=== PATIENT | female | born 1935 | race Caucasian/White ===

== ENCOUNTER → 2017-07-01 | Outpatient (CLI) | payer MEDICARE, BC ==
[~2017-07-01] MED LIST: ADVAIR HFA 230M12 GM INH; AMBEREN; ASMANEX0.135 GM IH; CARDIZEM CD180 MG PO; COUMADIN 2.5MG2.5 M1; COUMADIN 3 MG TA3 M1 PO; FENTANYL 1100 MCG/HR TP; FLEXERIL PO; HYDROCODON-ACE1 EAC8 PO; HYDROCODON-ACE1 EACH PO; LEVOXYL88 MCG PO; LIDODERM 5%1 PATCH TOP; LIPITOR20 MG PO; MIACALCIN; PROAIR HFA8.5 GM IH; PROPANTHELINE B15 MG PO; ZANTAC 150MG T150 MG PO
== END ==
LOC: M.LAB 14:54
DX: E03.9 Hypothyroidism, unspecified (principal); I25.10 Atherosclerotic heart disease of native coronary artery without angina pectoris; I10 Essential (primary) hypertension; E78.5 Hyperlipidemia, unspecified; E78.00 Pure hypercholesterolemia, unspecified

== ENCOUNTER → 2017-09-22 | Outpatient (CLI) | payer MEDICARE ==
[2017-09-22 16:12] LABS: ABSOLUTE BASOPHILS 0.1 thou/uL (0.0-0.2); ABSOLUTE EOSINOPHILS 0.1 thou/uL (0.0-0.7); ABSOLUTE LYMPHOCYTES 1.5 thou/uL (0.8-5.3); ABSOLUTE NEUTROPHILS 6.2 thou/uL (1.6-8.1); BASOPHILS 1.2 %; EOSINOPHILS 1.2 %; HEMATOCRIT 42.9 % (37.0-47.0); HEMOGLOBIN 14.6 gm/dL (12.0-15.0); MCH 32.8 pg (26.0-34.0); MCHC 33.9 g/dL (28.0-37.0); MCV 96.5 fL (80.0-100.0); NUCLEATED RBCS 0 /100WBC; PLATELET COUNT* 151 thou/uL (150-400); POLYS 69.6 %; RBC 4.45 mil/uL (4.20-5.00); RDW-CV 13.1 % (10.5-14.5); WBC 8.8 thou/uL (4.0-11.0)
[2017-09-22 16:23] LABS: INR 3.5; PROTIME 33.3 Seconds (9.20-11.50)
[2017-09-22 16:28] LABS: ALBUMIN 3.9 g/dL (3.4-5.0); ALKALINE PHOSPHATASE 80 U/L (46-116); ANION GAP 8 mmol/L (7-16); BUN 11 mg/dL (7-18); CALCIUM 9.5 mg/dL (8.5-10.1); CHLORIDE 108 mmol/L (98-107); CO2 26 mmol/L (21-32); CREATININE 0.8 mg/dL (0.6-1.3); GLUCOSE 97 mg/dL (70-99); POTASSIUM 3.6 mmol/L (3.5-5.1); SGOT 26 U/L (15-37); SGPT 22 U/L (30-65); SODIUM 142 mmol/L (136-145); TOTAL BILIRUBIN 0.9 mg/dL (<0.1-1.0); TOTAL PROTEIN 9.1 g/dL (6.4-8.2)
[2017-09-22 16:51] LABS: SERUM ASSESSMENT Clear
[2017-09-22 16:52] LABS: CHOLESTEROL 115 mg/dL (<200); HDL CHOLESTEROL 45 mg/dL (>40); LDL CHOLESTEROL 50 mg/dL (<100); TC:HDL 2.6 Ratio (Not establshd); TRIGLYCERIDE 100 mg/dL (<150); VLDL 20 mg/dL (<40)
== END ==
LOC: M.LAB 15:48
PROVIDERS: Family Medicine
DX: I10 Essential (primary) hypertension (principal); E78.00 Pure hypercholesterolemia, unspecified; E03.9 Hypothyroidism, unspecified; I70.90 Unspecified atherosclerosis

== ENCOUNTER 2017-11-12 13:18 | Emergency (ER) | payer MEDICARE ==
[~2017-11-12] VITALS: Ht 154.9 cm; Wt 53.5 kg
[2017-11-12 14:20] VITALS: BP 148/78
== END 2017-11-12 14:21 | disposition home or self-care (01) ==
LOC: M.ERS 13:18
DX: S63.592A Other specified sprain of left wrist, initial encounter (principal); E03.9 Hypothyroidism, unspecified; I48.91 Unspecified atrial fibrillation; G89.29 Other chronic pain; M54.9 Dorsalgia, unspecified; Z91.041 Radiographic dye allergy status; Z88.0 Allergy status to penicillin; W18.39XA Other fall on same level, initial encounter; Y93.89 Activity, other specified; Y92.89 Other specified places as the place of occurrence of the external cause; Y99.8 Other external cause status

== ENCOUNTER 2018-07-21 20:07 | Inpatient (IN) | payer MEDICARE ==
[~2018-07-21] VITALS: Ht 162.6 cm; Wt 57.5 kg
[~2018-07-21 20:07] MED LIST changes: -AMBEREN; +MULTI VITAMIN1 EACH PO
[2018-07-21 20:10] VITALS: BP 166/65
[2018-07-21] MEDS ORDERED: NORCO 7.5-3251 EACH PO (20:13)
[2018-07-21] MEDS ORDERED: LIDODERM1 EACH TRANSDERM (20:13)
[2018-07-21] MEDS ORDERED: FENTANYL PATCH75 MCG TRANSDERM (20:13)
[2018-07-21] MEDS ORDERED: COUMADIN 3 MG TA3 M1 PO (20:13)
[2018-07-21] MEDS ORDERED: LIPITOR 20 MG T20 M1 PO (20:14)
[2018-07-21] MEDS ORDERED: PHENERGAN 25 MG25 M1 PO ×2 (20:15→23:09)
[2018-07-21] MEDS ORDERED: PROPANTHELINE B15 MG PO (20:15)
[2018-07-21] MEDS ORDERED: CARDIZEM CD 18180 M3 PO (20:15)
[2018-07-21] MEDS ORDERED: ZANTAC 150MG T150 MG PO (20:15)
[2018-07-21] MEDS ORDERED: ADVAIR 250-501 EACH INH (20:16)
[2018-07-21] MEDS ORDERED: PROAIR RESPICL90 MCG INH (20:16)
[2018-07-21] MEDS ORDERED: [UNRECOGNIZED DRUG - REMARK] (20:17)
[2018-07-21] MEDS ORDERED: CALCITONIN-SAL3.7 ML PO (20:17)
[2018-07-21] MEDS ORDERED: ARICEPT 5 MG TAB5 MG PO (20:17)
[2018-07-21] MEDS ORDERED: SYNTHROID75 MCG PO (20:17)
[2018-07-21 20:27] LABS: URINE BILIRUBIN NEGATIVE (Negative); URINE BLOOD TRACE (Negative); URINE CLARITY CLEAR; URINE COLOR YELLOW; URINE GLUCOSE-RANDOM NEGATIVE (Negative); URINE KETONES NEGATIVE (Negative); URINE LEUKOCYTES-REFLEX 2+ (Negative); URINE NITRITE-REFLEX NEGATIVE (Negative); URINE PROTEIN NEGATIVE (Negative); URINE SPECIFIC GRAVITY 1.015 (1.005-1.030); URINE UROBILINOGEN 0.2 E.U./dl (0.2-1.0)
[2018-07-21 20:35] LABS: BACTERIA-REFLEX >30 Many /HPF (None Seen); CASTS None Seen /LPF (None Seen); CRYSTALS None Seen /LPF (None Seen); SQUAMOUS 0-3 Few /LPF (0-3); URINE RBC 0-2 Rare /HPF (0-2); URINE WBC-REFLEX >25 Many /HPF (0-5)
[2018-07-21 20:52] LABS: HEMOGLOBIN 14.9 gm/dL (12.0-15.0); MCH 32.7 pg (26.0-34.0); MCHC 33.8 g/dL (28.0-37.0); MCV 96.9 fL (80.0-100.0); MPV 9.7 fl. (7.2-11.1); NUCLEATED RBCS 0 /100WBC; PLATELET COUNT* 136 thou/uL (150-400); RBC 4.54 mil/uL (4.20-5.00); RDW-CV 13.4 % (10.5-14.5); WBC 12.2 thou/uL (4.0-11.0)
[2018-07-21 20:57] LABS: APTT 29.6 Seconds (25.0-31.3); CALCIUM 9.2 mg/dL (8.5-10.1); INR 1.6; POTASSIUM 3.4 mmol/L (3.5-5.1)
[2018-07-21 21:14] LABS: ALBUMIN 3.4 g/dL (3.4-5.0); CK-MB MASS 0.6 ng/mL (<0.5-3.6); TOTAL BILIRUBIN 0.9 mg/dL (<0.1-1.0); TOTAL PROTEIN 8.8 g/dL (6.4-8.2); TROPONIN-I LEVEL 0.11 ng/mL (<0.06)
[2018-07-21 21:20] LABS: INFLUENZA A ANTIGEN None Detected (None Detect); INFLUENZA B ANTIGEN None Detected (None Detect)
[2018-07-21 22:19] LABS: ABSOLUTE BASOPHILS 0.1 thou/uL (0.0-0.2); ABSOLUTE LYMPHOCYTES 1.5 thou/uL (0.8-5.3); ABSOLUTE NEUTROPHILS 9.6 thou/uL (1.6-8.1)
[2018-07-21 22:20] LABS: PLATELET ESTIMATE DECREASED
[2018-07-21 22:22] VITALS: BP 147/56
[2018-07-21 22:42] VITALS: BP 141/62
[2018-07-21 23:00] VITALS: BP 141/53
[2018-07-22] VITALS (20 sets, daily range): BP systolic 103–136; BP diastolic 37–75
--- NOTE | 2018-07-22 01:00 | NUR ---
PT ADMITTED TO ROOM 002 FROM ED, VIA CART, TRANSPORTED FROM ED BY FAMILY CASEWORKER. AND GRANDDAUGHTER WITH PT ON ADMISSION. ADMISSION HX AND ASSESSMENT COMPLETE. ADMISSION HX OBTAINED FROM SPOUSE, WHO PT RESIDES WITH. PER SPOUSE, PT NORMALLY DOES ALL SELF CARES WITHOUT ASSIST, EXCEPT FOR PREPARIING MEDICATIONS, COOKING, OR DRIVING. PT ALERT AND ORIENTED TO SELF, STATES PLACE IS A HOSPITAL BUT UNSURE OF THE [facility]SE OF [facility], UNABLE TO PROVIDE MONTH OR YEAR. PT HAS PRESCRIBED CHRONIC OPIOID USE HX GREATER THAN 20 YEARS. PRESCRIBED HYDROCODNE 7.5MG PO Q6 HOURS SCHEDULED AND FENTANYL 75MCG DERMAL PATCH Q3DAYS SCHEDULED. PTS DENIES ANY RECENT AJUSTMENT IN PAIN MEDICATIONS OR ANY OTHER PRESCRIBED MEDICATIONS. SPOUSE FEELS PT IS BACK TO BASELINE AT THIS TIME, SPOUSE STATES CONCERNED PT DID NOT TAKE SCHEDULED 6PM OR MIDNIGHT SCHEDULED HYDROCODONE. FENTANYL PATCH ALREADY REMOVED BY EMS BEFORE ARRIVAL TO HOSPITAL. PT C/O BACK PAIN, REQUESTING PO PAIN MEDICATION. NOTIFIED DR MATOS PTS CONDITION AND SCHEDULED OPIOID HX, NEW ORDERS OBTAINED FOR HYDROCODNE 7.5/325MG PO [id number] PRN FOR PAIN, HYDROCODONE GIVEN PER ORDER, DENIES SOA, RESP EVEN AND NONLABORED. 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
[2018-07-22 04:26] LABS: ABSOLUTE LYMPHOCYTES 1.5 thou/uL (0.8-5.3); ABSOLUTE MONOCYTES 0.9 thou/uL (0.0-1.2); ABSOLUTE NEUTROPHILS 9.3 thou/uL (1.6-8.1); BASOPHILS 0.4 %; HEMATOCRIT 39.2 % (37.0-47.0); HEMOGLOBIN 13.2 gm/dL (12.0-15.0); LYMPHOCYTES 12.8 %; MCH 32.7 pg (26.0-34.0); MCHC 33.7 g/dL (28.0-37.0); MCV 97.2 fL (80.0-100.0); MONOCYTES 7.5 %; MPV 9.4 fl. (7.2-11.1); NUCLEATED RBCS 0 /100WBC; PLATELET COUNT* 110 thou/uL (150-400); POLYS 79.3 %; RBC 4.03 mil/uL (4.20-5.00); RDW-CV 13.4 % (10.5-14.5); WBC 11.7 thou/uL (4.0-11.0)
[2018-07-22 04:44] LABS: CALCIUM 8.1 mg/dL (8.5-10.1); CREATININE 0.8 mg/dL (0.6-1.3); POTASSIUM 3.5 mmol/L (3.5-5.1)
[2018-07-22 04:54] LABS: TROPONIN-I LEVEL 1.21 ng/mL (<0.06)
--- NOTE | 2018-07-22 05:50 | NUR ---
SERUM TROPONIN TRENDING UP, LAST TROP WAS ON 07/21/18 RESULT OF 0.11, THIS AM SERUM TROPONIN LEVEL IS 1.21, PT DENIES CP OR DISCOMFORT, REMAINS SB/SR WITH FIRST DEGREE AV BLOCK AND OCCASIONAL PAC'S TRACING INSIDE SALES ACCOUNT EXECUTIVE WITH HR HIGH 50'S TO 70'S. CALLED TROPONIN LEVEL TO DR MATOS, NEW ORDERS RECEIVED TO CONSULT CARDIOLOGY. CARDIOLOGY ANSWERING SERVICE NOTIFIED.
--- NOTE | 2018-07-22 07:00 | NUR ---
PROGRESSING TOWARDS GOALS, RESTING QUIELTY WITH EYES CLOSED OFF AND ON DURING NOC, EASILY AROUSABLE TO VERBAL STIMULI, HUSLIA, HYDROCODONE 7.5/325MG PO GIVEN X1 FOR BACK PAIN, HYDROCODONE EFFECTIVE FOR PAIN MANAGEMENT. ALERT TO SELF, KNOWS SHE IS IN A HOSPITAL, CAN NOT STATE FACILITY NAME OR YEAR. FOLLOWING COMMANDS, ABLE TO MAKE NEEDS KNOWN, USING CALL LIGHT [place]. NS CONTINUES 100CC/HR VIA INFUSION PUMP. SB/SR TRACING WITH FIRST DEGREE AVB TRACING FWS FACULTY ASSISTANT HR RANGING FROM HIGH 50'S TO 70'S. NO ADVERSE EFFECTS IV ANTIBIOTICS NOTED. NPO ALL SHIFT EXCEPT SIP H20 LAST NOC WITH HYDROCODONE TABLET, PT TAKES ALL PO MEDICATIONS IN EITHER LIQUID FORM OR CRUSHED WITHOUT ADDITIONAL FOOD SUCH PUDDDING OR APPLESAUSE FOR MIXTURE PER REPORTS. CISNEROS PATENT TO DD, JUDD FOWEL URINE OUTPUT WITH SEDIMENT NOTED 650CC TOTAL. BED REMAINS IN LOW AND LOCKED POSTION, CALL LIGHT IN REACH, BED ALARM ON FOR SAFETY.
--- NOTE | 2018-07-22 08:17 | NUR ---
0730 ASSUMED CARE OF PATIENT. SEE DOCUMENTED ASSESSMENT. PT IS AROUSABLE,WANTS WATER. NPO PENDING CARDIOLOGY INPUT. MONITOR SHOW SINUS TO SINUS COLLEEN WITH 1ST DEGREE BLOCK
--- NOTE | 2018-07-22 09:27 | NUR ---
DR MATOS TO SEE PATIENT AND ORDERS NOTED
--- NOTE | 2018-07-22 11:27 | NUR ---
1100 PATIENT HAD SOME BLOOD IN NOSE. OXYGEN REMOVED AT THIS TIME WWITH OXYGEN SATS FROM 92-95%/ PT C/O BACK PAIN AND PAIN IN CHEST WITH COUGHING. HAD PLACED LIDOCAINE PATCH ON BACK. MEDICATED WITH HYDROCODONE
--- NOTE | 2018-07-22 11:57 | NUR ---
EKG DONE FOR C/O CHEST PAIN. NO ACUTE CHANGES NOTED. OXYGEN REPLACED ON PATIENT AT 2LPM.
--- NOTE | 2018-07-22 12:14 | NUR ---
1200 CHEST FILM COMPLETED
--- NOTE | 2018-07-22 12:46 | EKG ---
[place] [address] ELECTROCARDIOGRAM REPORT Name: BRIDGET SORIA Room: [address] ADM IN M.R.#: [id number] Admission: 07/21/18 Attend Phys: Joelle Urena Discharge: Date of : 31 Report #: [id number] THIS REPORT FOR: //name// [facility] ED Test Date: 2018-07-21 Test Time: 20:12:11 Pat Name: BRIDGET SORIA Department: Room: [facility] Gender: F Sales Assistant: MS : 1935 Requested By: Claude Chairez Order Number: [id number] MD: Rohith Cruz Measurements Intervals [place] Rate: 83 P: 0 IL: 243 QRS: 9 QRSD: 98 T: 52 QT: 387 QTc: 455 Interpretive Statements Sinus rhythm Atrial premature complexes Prolonged [place] interval Repol abnrm suggests ischemia, diffuse leads No previous ECG available for comparison Electronically Signed On 07-22-2018 12:46:33 OUTSIDE SALES INSPECTOR by Rohith Cruz [email or web address] <ELECTRONICALLY SIGNED> By: Rohith Cruz MD, [facility] 07/22/18 1246 11 11 Rohith Cruz MD, [facility] /EPI
--- NOTE | 2018-07-22 16:54 | NUR ---
PATIENT PROGRESSING TOWARDS GOALS.SEEN BY CARDIOLOGY. DIET RESUMED. PATIENT IS ORIENTED X 3. VSS. MANY VISITORS
[2018-07-23] VITALS (16 sets, daily range): BP systolic 110–156; BP diastolic 45–93
[2018-07-23 01:49] LABS: INR 1.6; PROTIME 16.7 Seconds (9.20-11.50)
[2018-07-23 01:56] LABS: ANION GAP 9 mmol/L (7-16); BUN 12 mg/dL (7-18); CALCIUM 8.1 mg/dL (8.5-10.1); CHLORIDE 109 mmol/L (98-107); CHOLESTEROL 86 mg/dL (<200); CO2 23 mmol/L (21-32); CREATININE 0.8 mg/dL (0.6-1.3); GLUCOSE 89 mg/dL (70-99); POTASSIUM 3.4 mmol/L (3.5-5.1); SODIUM 141 mmol/L (136-145); TRIGLYCERIDE 45 mg/dL (<150); VLDL 9 mg/dL (<40)
[2018-07-23 02:04] LABS: HDL CHOLESTEROL 37 mg/dL (>40); LDL CHOLESTEROL 40 mg/dL (<100); SERUM ASSESSMENT Clear; TC:HDL 2.3 Ratio (Not establshd)
[2018-07-23 02:05] LABS: TROPONIN-I LEVEL 3.39 ng/mL (<0.06)
[2018-07-23 02:22] LABS: ABSOLUTE EOSINOPHILS 0.1 thou/uL (0.0-0.7); ABSOLUTE LYMPHOCYTES 1.6 thou/uL (0.8-5.3); ABSOLUTE MONOCYTES 0.7 thou/uL (0.0-1.2); ABSOLUTE NEUTROPHILS 8.4 thou/uL (1.6-8.1); BASOPHILS 0.4 %; EOSINOPHILS 0.5 %; HEMATOCRIT 35.5 % (37.0-47.0); LYMPHOCYTES 14.8 %; MCHC 33.8 g/dL (28.0-37.0); MCV 97.6 fL (80.0-100.0); MONOCYTES 6.9 %; MPV 9.8 fl. (7.2-11.1); NUCLEATED RBCS 0 /100WBC; PLATELET COUNT* 109 thou/uL (150-400); POLYS 77.4 %; RBC 3.63 mil/uL (4.20-5.00); RDW-CV 13.3 % (10.5-14.5); WBC 10.9 thou/uL (4.0-11.0)
--- NOTE | 2018-07-23 10:08 | NUR ---
0730 assumed care of patient.PT C/O SOB. RECEIVING AEROSOL TREATMENT. SEE DOCUMENTED ASSESSMENT.
--- NOTE | 2018-07-23 10:52 | NUR ---
SEEN BY DR PABLO AND DR MATOS WHO SPOKE WITH SPOUSE REGARDING PATIENT STATUS
--- NOTE | 2018-07-23 12:18 | EKG ---
[place] [address] ELECTROCARDIOGRAM REPORT Name: BRIDGET SORIA Room: [address] ADM IN M.R.#: [id number] Admission: 07/21/18 Attend Phys: Joelle Urena Discharge: Date of : 31 Report #: [id number] THIS REPORT FOR: //name// [facility] Test Date: 2018-07-22 Test Time: 11:36:24 Pat Name: BRIDGET SORIA Department: Room: [address] Gender: F Guest Relations Associate: GURJIT : 1935 Requested By: Rohith Cruz Order Number: [id number] Reading MD: Rohith Cruz Measurements Intervals [place] Rate: 57 P: 39 PA: 242 QRS: -3 QRSD: 97 T: 256 QT: 391 QTc: 381 Interpretive Statements Sinus arrhythmia Prolonged PA interval Low voltage, precordial leads Borderline repolarization abnormality Compared to ECG 07/21/2018 20:12:11 Low QRS voltage now present Possible ischemia no longer present Electronically Signed On 07-23-2018 12:18:34 CORPORATE TRAVEL COORDINATOR by Rohith Cruz [email or web address] <ELECTRONICALLY SIGNED> By: Rohith Cruz MD, FAC 07/23/18 1218 1136 1136 Rohith Cruz MD, [facility] /EPI
--- NOTE | 2018-07-23 18:14 | NUR ---
PATIENT PROGRESSING TOWARDS GOALS. SHORT OF AIR THIS MORNING AND APPETITE POOR. DIURESED POST LASIX AND IS CURRENTLY OFF OF OXYGEN AND ATE HER DINNER. WAS UP TO [facility] FOR BOWEL MOVEMENT. PATIENT STATES THAT SHE DOES NOT THINK HER PAIN PILLS ARE WORKING. MANY VISITORS.
--- NOTE | 2018-07-23 22:00 | NUR ---
PTS SPOUSE ASSISTS WITH ADMINISTERING HOME MEDICATIONS, STATES PT TAKES HER SCHEDULED CARDIZEM CD 180MG PO AT HS, CARDIZEM NOT GIVEN THIS AM DUE TO B/P AND HR, RESCHEDULED FOR HS SAME HOME DOSE.
--- NOTE | 2018-07-23 23:00 | NUR ---
PT C/O FEELING "LIKE I HAVE A FEVER" GENERALIZED ACHING, BACK PAIN AND CHEST PAIN POSTERIOR BILAT RIB AREAS. STATES PT PAIN WILL INCREASE AND LEG PAIN WILL BEGIN "SOON WITHOUT HER PAIN PATCH", EDUCATED DECRASED LOC ON ADMIT R/T NARCOTIC USE. PTS STATES ON DC PT WILL RESTART FENTANYL 75MCG PATCH Q3 DAYS PREVIOUSLY ORDERED. CONTACTED DR MATOS, UPDATED PT CONDITON, C/O PAIN AND REQUEST FOR FENTANYL PATCH TO RESUME HOME DOSE. NEW ORDERS RECEIVED FOR FENTANYL 12MCG TRANSDERMAL PATCH TO START TONIGHT. WILL COMMUNICATE NEW ORDERS WITH PATIENT AND SPOUSE, WILL INITIATE NEW ORDERS, AND CONTINUE TO MONITOR.
[2018-07-24] VITALS (20 sets, daily range): BP systolic 96–155; BP diastolic 59–108
[2018-07-24 02:23] LABS: PCO2 22.3 mmHg (35.0-45.0); pH 7.531 (7.340-7.450)
[2018-07-24 02:26] LABS: PO2 52.7 mmHg (75.0-100.0)
--- NOTE | 2018-07-24 02:36 | NUR ---
MAINTAINING INCREASED RESP RATE =>30'S BPM, AROUSABLE, SOMULENT, C/O INTERMITTENT CP. ABG, POTASSIUM, MAGNESIUM, GLUCOSE, TROPONIN, AND EKG ORDERED. EKG OBTAINED SR PVC'S BORDERLINE PROLONGED VA INTERVAL, WITH PROBABLE ANTEROSEPTAL INFACRCT RECENT. RECENT NONSTEMI DX THIS ADMISSION, ABG RESPIRATORY ALKALOSIS PH 7.531, PCO2 22.3, PO2 52.7, BICARB 18.3, WITH SAO2 MEAN OF 91.7, SPOKE WITH RESPIRATORY THERAPIST, WILL START HIGHFLOW NC, AWAITING STAT LAB RESULTS, WILL CONTINUE TO MONITOR. PT DENIES PAIN AT PRESENT TIME.
[2018-07-24 02:52] LABS: INR 1.7; PROTIME 17.4 Seconds (9.20-11.50)
[2018-07-24 02:59] LABS: MAGNESIUM 1.8 mg/dL (1.8-2.4); POTASSIUM 3.3 mmol/L (3.5-5.1)
[2018-07-24 03:05] LABS: TROPONIN-I LEVEL 9.36 ng/mL (<0.06)
--- NOTE | 2018-07-24 03:29 | NUR ---
CALLED AND SPOKE WITH DR PABLO, PT C/O INTERMITTENT ANTERIOR CHEST WALL PAIN, RESOLVED AT PRESENT MOMENT. UPDATED ABG, TROP, MAG, POTASSIUM, AND EKG RESULTS, UPDATED RECENT V/S, OXYGEN 4L PER NC, PORABLE CHEST XRAY PENDING AND POTASSIUM REPLACMENT GIVEN PER ELECTROLYTE PROTOCOL. NO NEW ORDERS RECEIVED AT THIS TIME.
--- NOTE | 2018-07-24 03:42 | NUR ---
C/O NAUSEA, ORDER RECEIVED FOR ZOFRAN 4MG IVP [id number] PRN, WILL INITIATE AND CONTINUE TO MONITOR.
--- NOTE | 2018-07-24 04:00 | NUR ---
SPOKE WITH DR MATOS VIA TELEPHONE, UPDATED ABG RESULTS, NAUSEA, INCREASED TROPONIN, INTERMITTENT CHEST PAIN, RESP RATE, WITH CURRENT ASSESSMENT FINDINGS, PORTABLE CXR RESULTS, AND PREVIOUS CALL TO DR PABLO R/T ABOVE STATED ISSUES. NEW ORDERS FOR NITROGLYCERIN 0.4MG SL PRN RECEIVED.
--- NOTE | 2018-07-24 06:26 | NUR ---
POTASSIUM 40MEQ PO GIVEN FOR SERUM POTASSIUM LEVEL 3.3, PER ELECTROLYTE PROTOCOL
--- NOTE | 2018-07-24 06:50 | NUR ---
MINIMAL PROGRESSION TOWARDS GOALS, DENIES PAIN OR DISCOMFORT AT PRESENT TIME, INTERMITTENT CONFUSION/FORGETFULLNESS, REMOVING CHEST CARDIAC MONITORING PATCHES, PULSE OX, AND OXYGEN, ABLE TO REAPPLY ALL THE ABOVE STATED DEVICES WITH EDUCATION, DIFFICULT TO REDIRECT AT TIMES. PT PLACED DENTURES IN CONTAINER, HEARING AID CONTAINER AND DRINKING CUP UNDER BLANKETS STATED PEOPLE WOULD STEAL THEM. REORIENTED PRN, DENIES CP AFTER NITROGLYCERIN PRN ORDERED, SPOKE WITH PTS SPOUSE THIS AM, UPDATED ON CURRENT CONDITON AND INTERVENTIONS DURING NOC. BED ALARM ON FOR SAFETY, FREQUENT EDUCATION USE OF CALL LIGHT PROVIDED, CALL LIGHT REMAINS IN REACH. BED IN LOW AND LOCKED POSITION.
--- NOTE | 2018-07-24 10:35 | NUR ---
Nutrition: Pt admitted with sepsis. H/o dementia, fibromyalgia, COPD, osteoporosis. Pt is eating 50-100% of meals. RX noted. Wt: 124#. BG 135, alb 3.4. Heart Healthy diet. Has wound on sacral area. Will have wound care at disch. RD ordered Jonh b.i.d. to aid in wound healing. Consider Mild risk at this time.
--- NOTE | 2018-07-24 11:01 | EKG ---
[place] [address] ELECTROCARDIOGRAM REPORT Name: YANGBRIDGET Room: [address] ADM IN M.R.#: [id number] Admission: 07/21/18 Attend Phys: Joelle Urena Discharge: Date of : 31 Report #: [id number] THIS REPORT FOR: //name// [facility] Test Date: 2018-07-23 Test Time: 08:05:14 Pat Name: BRIDGET SORIA Department: Room: [address] Gender: F Avian Keeper: : 1935 Requested By: Rohith Cruz Order Number: [id number] MD: Rohith Cruz Measurements Intervals [place] Rate: 58 P: 32 SD: 217 QRS: 33 QRSD: 97 T: 59 QT: 441 QTc: 434 Interpretive Statements Sinus rhythm Atrial premature complex Borderline prolonged SD interval Borderline low voltage, extremity leads septal infarct, old Borderline ST depression, anterolateral leads Electronically Signed On 07-24-2018 11:01:26 SPANISH INTERPRETER/TRANSLATOR by Rohith Cruz [email or web address] <ELECTRONICALLY SIGNED> By: Rohith Cruz MD, [facility] 07/24/18 1101 08 4 Rohith Cruz MD, [facility] /EPI
--- NOTE | 2018-07-24 11:10 | EKG ---
[place] [address] ELECTROCARDIOGRAM REPORT Name: BRIDGET SORIA Room: [address] ADM IN M.R.#: [id number] Admission: 07/21/18 Attend Phys: Joelle Urena Discharge: Date of : 31 Report #: [id number] THIS REPORT FOR: //name// [facility] Test Date: 2018-07-24 Test Time: 02:18:55 Pat Name: BRIDGET SORIA Department: Room: [address] Gender: F Director Of Restaurant Operations: NATALEE ROWELL : 1935 Requested By: Farooq Rey Order Number: [id number] Reading MD: Rohith Cruz Measurements Intervals [place] Rate: 84 P: 71 [place]: 216 QRS: 33 QRSD: 94 T: 87 QT: 410 QTc: 485 Interpretive Statements Sinus rhythm Ventricular premature complex Borderline prolonged [place] interval Probable anteroseptal infarct Baseline wander in lead(s) II Electronically Signed On 07-24-2018 11:09:58 INSURANCE CLAIMS ASSISTANT by Rohith Cruz [email or web address] <ELECTRONICALLY SIGNED> By: Rohith Cruz MD, [facility] 07/24/18 1109 0218 0218 Rohith Cruz MD, [facility] /EPI
--- NOTE | 2018-07-24 13:24 | 2DMMODE ---
[place] [address] 2 D/M-MODE ECHOCARDIOGRAM Name: HALINA SORIAIE WENDY Room: [address] ADM IN .R.#: [id number] Admission: 07/21/18 Attend Phys: Farooq Rey Discharge: Date of : 31 Date of Service: 07/24/18 1324 Report #: [id number] THIS REPORT FOR: //name// APPROVED REPORT Study performed: 07/24/2018 09:27:36 EXAM: Comprehensive 2D, Doppler, and color-flow Echocardiogram Patient Location: Bedside BSA: 1.96 HR: 90 bpm BP: 120/85 mmHg Other Information Study Quality: Good Indications Non STEMI Sepsis 2D Dimensions IVSd: 17.86 (7-11mm) LVOT Diam: 22.23 (18-24mm) LVDd: 38.01 mm PWd: 8.77 (7-11mm) Ascending Ao: 32.24 (22-36mm) LVDs: 29.56 (25-40mm) Aortic Root: 33.75 mm Volumes Left Atrial Volume (Systole) LA ESV Index: 22.20 mL/m2 Aortic Valve AoV Peak Felix.: 0.73 m/s AO Peak Gr.: 2.15 mmHg LVOT Max P.80 mmHg AO Mean Gr.: 1.21 mmHg LVOT Mean P.33 mmHg LVOT Max V: 0.45 m/s AO V2 VTI: 10.96 cm LVOT Mean V: 0.26 m/s TRACEE (VTI): 2.73 cm2 LVOT V1 VTI: 7.70 cm Mitral Valve E/A Ratio: 0.83 MV Decel. Time: 171.97 ms MV E Max Felix.: 0.41 m/s MV PHT: 49.87 ms MVA (PHT): 4.41 [place] [address] 2 D/M-MODE ECHOCARDIOGRAM Name: BRIDGET SORIA Room: [address] IN .R.#: [id number] Admission: 07/21/18 Attend Phys: Farooq Rey Discharge: Date of : 31 Date of Service: 07/24/18 1324 Report #: [id number] TDI E/Lateral E': 6.83 E/Medial E': 10.25 Medial E' Felix.: 0.04 m/s Lateral E' Felix.: 0.06 m/s Pulmonary Valve PV Peak Felix.: 0.64 m/s PV Peak Gr.: 1.62 mmHg Tricuspid Valve RAP Estimate: 5.00 mmHg TR Peak Gr.: 32.61 mmHg RVSP: 37.61 mmHg PA Pressure: 37.61 mmHg Left Ventricle The left ventricle is normal size. akinesis noted of the mid and distal anteroapical wall septal hypertrophy noted Left ventricular systolic function is severely decreased. LVEF is 20-25%. Grade I - abnormal relaxation pattern. Right Ventricle The right ventricle is normal size. The right ventricular systolic function is normal. Atria The left atrium size is normal. The right atrium size is normal. Aortic Valve The Aortic valve is sclerotic. Trace aortic regurgitation. There is no aortic valvular stenosis. Mitral Valve The mitral valve is normal in structure. Trace mitral regurgitation. No evidence of mitral valve stenosis. Tricuspid Valve The tricuspid valve is normal in structure. Mild tricuspid regurgitation. Pulmonic Valve The pulmonary valve is normal in structure. Trace pulmonic regurgitation. Great Vessels The aortic root [place] [address] 2 D/M-MODE ECHOCARDIOGRAM Name: BRIDGET SORIA WENDY Room: [address] IN [facility]#: [id number] Admission: 07/21/18 Attend Phys: Farooq Rey Discharge: Date of : 31 Date of Service: 07/24/18 1324 Report #: [id number] Pericardium There is no pericardial effusion. <Conclusion> LVEF is 20-25%. akinesis noted of the mid and distal anteroapical wall Trace aortic regurgitation. Trace mitral regurgitation. <ELECTRONICALLY SIGNED> By: Rohith Cruz MD, FAC 07/24/18 1324 1324 1324 Rohith Cruz MD, [facility] /INF
--- NOTE | 2018-07-24 15:20 | NUR ---
WOUND NURSE: PATIENT SEEN TO ADDRESS COCCYGEAL PARTIAL THICKNESS SKIN LESION ON THE COCCYX. SPOUSE REPORTING THAT THIS LESION HAS COME AND GONE FREQUENTLY OVER THE PAST 8 YEARS. MEASURES 0.5 X 0.5 X 0.1 CM, SHALLOW EROSION WITH RED, NONGRANULATING TISSUE IN THE WOUND BED, NO ACTIVE DRAINAGE PRESENT. CLEANSED WITH SAOP AND WATER, RINSED WITH WATER,THEN PATTED DRY; APPLIED MARATHON SKIN PREOTECTANT TO THE AFFECTED SITE. INSTRUCTED PATIENT AND SPOUSE ON IMPORTANCE OF FREQUENT REPOSITIONING OFF WOUND AND NUTRITIONAL NEEDS. BOTH STATED THEY UNDERSTOOD. PROVIDED A [facility] BUSINESS CARD AND EXPLAINED THEY CAN SCHEDULE APPT IF WOUND REAPPEARS ONCE HEALED.
--- NOTE | 2018-07-24 18:24 | NUR ---
PT ASSESSMENT CHARTED. VSS THROUGHOUT SHIFT. NO COMPLAINTS OF CHEST PAIN. PT EATING WITH ASSISTANCE. Q6H PAIN MEDICATION GIVEN FOR GENERALIZED PAIN. WOUND CARE NURSE VISITED WITH PATIENT, RECOMMENDATIONS IN THE CHART. NO OTHER COMPLAINTS DURING THE SHIFT. PT'S HAS BEEN EDUCATED THROUGHOUT THE DAY.
--- NOTE | 2018-07-24 22:42 | NUR ---
Report given to side splitter. Pt transferred to Tele per bed at 2230. Pt's made aware earlier this evening of possibility of pt being transferred tonight. States he did not need to be called if that happens.
[2018-07-25 04:00] VITALS: BP 115/77
[2018-07-25 05:29] LABS: ABSOLUTE EOSINOPHILS 0.2 thou/uL (0.0-0.7); ABSOLUTE LYMPHOCYTES 1.9 thou/uL (0.8-5.3); ABSOLUTE NEUTROPHILS 5.5 thou/uL (1.6-8.1); BASOPHILS 0.5 %; EOSINOPHILS 2.7 %; HEMATOCRIT 39.9 % (37.0-47.0); HEMOGLOBIN 13.4 gm/dL (12.0-15.0); LYMPHOCYTES 22.1 %; MCH 32.9 pg (26.0-34.0); MCHC 33.6 g/dL (28.0-37.0); MCV 97.9 fL (80.0-100.0); MONOCYTES 11.9 %; NUCLEATED RBCS 0 /100WBC; PLATELET COUNT* 177 thou/uL (150-400); POLYS 62.8 %; RBC 4.08 mil/uL (4.20-5.00); RDW-CV 13.2 % (10.5-14.5); WBC 8.7 thou/uL (4.0-11.0)
[2018-07-25 05:42] LABS: PROTIME 29.2 Seconds (9.20-11.50)
[2018-07-25 05:51] LABS: INR 2.9
[2018-07-25 06:10] LABS: ALBUMIN 2.2 g/dL (3.4-5.0); CALCIUM 8.5 mg/dL (8.5-10.1); POTASSIUM 3.9 mmol/L (3.5-5.1); TOTAL BILIRUBIN 0.6 mg/dL (<0.1-1.0); TOTAL PROTEIN 6.7 g/dL (6.4-8.2)
--- NOTE | 2018-07-25 07:48 | NUR ---
PT REMAINED STABLE SINCE TRANSFER FROM ICU. VSS ON 2L. PAIN RELEIVED WITH MEDICATIONS PER AUG. REPOSITIONING DONE. CALL LIGHT WITHIN REACH.
[2018-07-25 08:00] VITALS: BP 126/70
[2018-07-25 12:00] VITALS: BP 90/54
--- NOTE | 2018-07-25 14:51 | NUR ---
INITIAL ASSESSMENT: CM SPK W/PT , ANGLE, TO DISCUSS D/C PLANNING, HOME SITUATION, AND TO EDUCATE ON ROLE OF CM. PT ASLEEP @ TIME OF ASSESSEMENT & DIFFICULT TO ROUSE. PER SPOUSE PT IS A&O & INDEPENDENT W/ADLs. SPOUSE DOES THE COOKING. PT HAS GOOD FAMILY DYNAMIC, SUPPORTED BY SPOUSE, AND G/D ALSO PRESENT. PT HAS WALKER & CANE @ HOME, BUT DOESNT USED THEM PER SPOUSE. PT HAS HX OF SNF W/[facility]. CM WILL CONT TO FOLLOW TO PROVIDE SUPPORT/ASSISTANCE PRN.
[2018-07-25 15:18] VITALS: BP 81/47
[2018-07-25 16:49] VITALS: BP 108/70
--- NOTE | 2018-07-25 18:16 | NUR ---
ASSUMED PT CARE AT 0730, FULL ASSESMENT DONE CHARTED.PT A/O X3-4, FORGETFUL AT TIMES, VERY [employer] [place], ATE 75% BREAKFAST AND LUNCH, 50% DINNER. BECAME VERY DROWSY AFTER BREAKFAST, VSS , PT EASILY AROUSED, SHE STATES SHE DID NOT SLEEP WELL LAST NIGHT. PT DOES C/O PAIN IN ABDOMEN AND BACK, PAIN MEDS GIVEN PER MAR. PT C/O CHEST PAIN WITH COUGHING. CISNEROS IN PLACE DRAINING YELLOW URINE, COCCYX DRESSING C/D/I, PT TURNED Q2 HR, WORKED WITH PT, UP TO CHAIR THIS AFTERNOON. FAMILY AT BEDSIDE THIS AM, UPDATED ON PLAN OF CARE. FALL PRECAUTIONS IN PLACE, CALL LIGHT IN REACH, PT DOES USE IT. WILL CONTINUE TO MONITOR.
[2018-07-25 20:00] VITALS: BP 117/68
[2018-07-26] VITALS (7 sets, daily range): BP systolic 118–134; BP diastolic 62–69
--- NOTE | 2018-07-26 05:37 | NUR ---
ASSUMED PT CARE AT 1930. PT AWAKE, CAN ANSWER SIMPLE QUESTIONS. HARD OF HEARING. VSS ON 2L PER NC. DREDGE OPERATOR IN PLACE TRACING SR. DENIES ANY CHEST PAIN. BACK PAIN RELIEVED BY TYLENOL GIVEN PER AUG. CALL LIGHT WITHIN REACH. HOURLY ROUNDING DONE FOR PT SAFETY.
[2018-07-26 10:38] LABS: INR 3.3
--- NOTE | 2018-07-26 12:35 | CON ---
[facility] [address] [place] [address] CONSULTATION Name: BRIDGET SORIA Room: [address] IN M.R.#: [id number] Admission: 07/21/18 Attend Phys: Joelle Urena Discharge: Date of : 31 Report #: [id number] THIS REPORT FOR: //name// CC: Abner Rey DATE OF SERVICE: 07/22/2018 HISTORY OF PRESENT ILLNESS: The patient is an 82-year-old white female who I was asked to see in the hospital today after she was noted to have an elevated troponin. Unfortunately, no old records available. The patient has an extensive past medical history. She apparently had a previous myocardial infarction following rectocele surgery here at [facility] and was transferred by helicopter to [facility] with Dr. Gill, who apparently did balloon angioplasty years ago. She is not very active at this time, but has had no recent chest pain, shortness of breath, palpitations. Apparently yesterday, the states that she laid down for a nap. Later in the day, he noticed it was difficult to arouse her. The patient was brought to [facility] and admitted. I was asked to see her for further evaluation and treatment. She had had no recent fever, cough, vomiting. PAST MEDICAL HISTORY: Otherwise significant for hysterectomy, ear surgery, knee surgery. MEDICATIONS ON ADMISSION: She takes warfarin for previous history of DVT. She uses a fentanyl patch for chronic back pain, Lipitor, diltiazem, Advair, donepezil for memory loss, Synthroid. ALLERGIES: SHE IS INTOLERANT TO PENICILLIN. FAMILY HISTORY: Negative for heart disease. SOCIAL HISTORY: She is . She and her live here in [place]. No smoking or alcohol abuse. REVIEW OF SYSTEMS: She has had no history of stroke. She does have memory loss. No history of asthma, peptic ulcer disease, liver disease, kidney disease, cancer, psychiatric illness, chronic skin condition. PHYSICAL EXAMINATION: GENERAL: Elderly, frail appearing female, lying in bed. She appeared in no distress. VITAL SIGNS: She had a blood pressure of 120/60, pulse 70, her temperature on admission was 102. HEENT: She was anicteric, conjunctiva pink. Mucous membranes are dry. NECK: Veins [place] [address] CONSULTATION Name: BRIDGET SORIA WENDY Room: [address]#: [id number] Admission: 07/21/18 Attend Phys: Joelle Urena Discharge: Date of : 31 Report #: [id number] CHEST: Clear to auscultation. CARDIAC: Regular rate and rhythm. ABDOMEN: Soft. EXTREMITIES: Had no edema. SKIN: Cool and dry. NEUROLOGIC: Nonfocal. Her ECG on admission showed a sinus rhythm with nonspecific ST and T-wave change. Her x-rays yesterday in the Emergency Room, she had a CT scan of the head that showed atrophy, white matter changes. Her chest x-ray showed atelectasis. LABORATORY WORK: Sodium 139, BUN 13, creatinine 0.8. Liver function studies were normal. Troponin 1.2. White blood cell count 11.7, hemoglobin 13.2. Her urinalysis showed many wbc's and many bacteria. IMPRESSION AND RECOMMENDATIONS: 1. Urinary tract infection. 2. Drowsiness. Suspect related to narcotics. 3. Non-ST elevation myocardial infarction. No history of angina. Recommend a conservative approach. I would not recommend stress testing or cardiac catheterization. 4. Hyperlipidemia. The patient is on a statin drug. 5. Chronic back pain. 6. Previous balloon angioplasty. <ELECTRONICALLY SIGNED> By: Rohith Crzu MD, FACC 07/26/18 1235 1020 1123Dupra Cruz MD, FACC /nt
--- NOTE | 2018-07-26 13:55 | NUR ---
Anticipate that Pt will be ready to dc home tomorrow with HH.
[2018-07-27 04:00] VITALS: BP 140/85
--- NOTE | 2018-07-27 05:58 | NUR ---
ASSUMED PT CARE AT 1930. AWAKE AND ORIENTED X2-3. CAN BE FORGETFUL AT TIMES. VSS ON 2L OF O2 PER NC. COMPLAINED OF BACK PAIN AND IS PARTIALLY RELIEVED BY TYLENOL GIVEN PER AUG. WAS ABLE TO STAND UP WITH ASSIST TO THE COMMODE. CALL LIGHT WITHIN REACH. FALL PRECAUTIONS IN PLACE. HOURLY ROUNDING DONE FOR PT SAFETY.
--- NOTE | 2018-07-27 07:46 | NUR ---
PT DIFFICULT TO AROUSE THIS MORNING @ APPROX 0700. MOANS TO VIGOROUS TACTILE STIMULI. FENTANYL PATCH REMOVED. UPON REASSESSMENT PT IS AWAKE AND IS DRINKING WATER. PT STATES THAT SHE WAS NOT WAKING UP BECAUSE "SHE DID NOT GET SOME SLEEP LAST NIGHT".
[2018-07-27 08:00] VITALS: BP 132/83
--- NOTE | 2018-07-27 09:48 | NUR ---
ASSUMED CARE OF PT THIS AM AROUND 0715- PYROTECHNICIAN IN PLACE ORDERED, TRACING SR- UPON ASSESSMENT PT NOTED TO BE RESTING IN BED, EATING BREAKFAST-PT A&O X3 WITH INTERMITENT CONFUSSION NOTED- STRESS INCONTINENTS NOTED- ASISST X1 WITH TRANSFERS- LCTA, RESP EVEN AND UN-LABORED- VSS, O2 SAT 94% ON 2L VIA NC- ABD SOFT/FLAT NON-TENDER, BS X4 QUADS- LAST BM REPORTED 07/26/18- IV NOTED TO LEFT FA INTACT AND SL- FOWM DRESSING NOTED INTACT TO COCCYX, WN TO ASSESS FURTHER- COUMADIN DECREASED TO 2MG THIS SHIFT AND LASIX CHANGED TO PO- FENT D/C'D R/T DECREASED RESPONSIVENESS AFTER APPLICATION- QUESTIONING SKILLED PLACEMENT AT D/C'D- PT DENEIS ANY C/O PAIN/DISCOMFORT AT THIS TIME- CALL LIGHT AND PERSONAL BELONGINGS WITH IN REACH- BED ALARM/CHAIR IN PLACE R/T SAFETY/NEEDS- ALL NEEDS MET AT THIS TIME-WCTM
[2018-07-27 12:25] VITALS: BP 115/67
--- NOTE | 2018-07-27 16:44 | NUR ---
PT CURRENLTY RESTING IN BED- NUCLEAR OPERATIONS SPECIALIST IN PLACE ORDERED, TRACING SR- PT WORKING WITH THERAPIES ORDERED THIS SHIFT, UP WALKING HALLS WITH ASSIST X1 AND GAIT BELT THIS SHIFT, TOLERATING WELL- UP TO BED SIDE CHAIR THIS SHIFT WITH MEALS, TOLERATING WELL- PT C/O PBACK PAIN X1 THIS SHIFT, PRN HYDROCODNE GIVEN AT 1202- PT REPORTS MEDICAITON TO BE EFFECTIVE- WN CONCULTED FOR EVAL OF COCCYX WOUND THIS SHIFT- CALL LIGHT AND PERSONAL BELONGINGS WITH IN REACH- BED/CHAIR ALARM IN PLACE R/T SAFETY/NEEDS- FREQUENT CHECKS IN PLACE R/T SAFETY/NEEDS- ALL NEEDS MET AT THIS TIME-WCTM
[2018-07-27 16:49] VITALS: BP 105/65
[2018-07-27 20:20] VITALS: BP 115/84
[2018-07-28] VITALS: BP 87/43
[2018-07-28 04:00] VITALS: BP 103/57
--- NOTE | 2018-07-28 05:14 | NUR ---
PT CARE ASSUMED AT 1930. SAT MAINTAINED IN 2L NC. ALERT AND ORIENTED X4. CALL LIGHT WITHIN REACH AND BED IN LOW POSITION. C/O PAIN, MEDICTAION GIVEN PER EMAR. DENIES SOB. HOURLY ROUNDING DONE FOR PT SAFETY.
[2018-07-28] MEDS ORDERED: CARVEDILOL3.125 MG PO (08:32)
[2018-07-28] MEDS ORDERED: CEFDINIR300 MG PO (08:32)
[2018-07-28] MEDS ORDERED: LISINOPRIL5 MG PO (08:32)
[2018-07-28] MEDS ORDERED: NITROGLYCERIN0.4 MG SUBLING (08:32)
[2018-07-28] MEDS ORDERED: ASPIR 8181 MG PO (08:32)
[2018-07-28] MEDS ORDERED: LASIX 20 MG TAB20 MG PO (08:32)
[2018-07-28 09:17] LABS: INR 3.9
[2018-07-28 10:30] VITALS: BP 118/66
--- NOTE | 2018-07-28 10:31 | NUR ---
Pt discharging to home today with [facility], fax referral and dc orders. Pt may need home o2, waiting on ex ox to determine need. Following.
[2018-07-28 12:00] VITALS: BP 93/57
--- NOTE | 2018-07-28 15:47 | NUR ---
ORDER RECEIVED TO DISHCARGE PATIENT HOME TO SELF CARE WITH SPOUSE. MED REC, MEDICATIOPN EDCUCATION, STROKE EDUCATION, AND NEED FOPR FOLLOW UP APPOINTMENTS COVERED AND STATED UNDERSTOOD BY PATIENT. HEART FAILURE INTERVENTIONS, MEDICATIONS, WEIGHT MONITORING, AND FOLLOW UP APPOINTMENTS COVERD WITH PATIENT AND SPOUSE. IV AND TELEMETRY PACK REMOVED. PATIENT TAKEN VIA WHEELCHAIR TO AWAITING CAR WITH SPOUSE PRESENT. DC TIME OF 15:10. HOURLY ROUNDING COMPLETD FOR PATIENT SAFETY.
== END 2018-07-28 16:52 | disposition home health service (06) | DRG 871 ==
LOC: M.ERS 20:07 → M.TBA-ER 21:11 → M.ICU 21:11 → M.2W 07-24 22:44
PROVIDERS: Family Medicine; Internal Medicine; Internal Medicine Cardiovascular Disease; Registered Nurse; ADMIT Internal Medicine
DX: A41.9 Sepsis, unspecified organism (principal); G92 Toxic encephalopathy; I21.4 Non-ST elevation (NSTEMI) myocardial infarction; J69.0 Pneumonitis due to inhalation of food and vomit; I50.23 Acute on chronic systolic (congestive) heart failure; N30.00 Acute cystitis without hematuria; L89.159 Pressure ulcer of sacral region, unspecified stage; Z96.652 Presence of left artificial knee joint; G89.29 Other chronic pain; M54.9 Dorsalgia, unspecified; J44.9 Chronic obstructive pulmonary disease, unspecified; E03.9 Hypothyroidism, unspecified; E78.5 Hyperlipidemia, unspecified; M81.0 Age-related osteoporosis without current pathological fracture; B96.1 Klebsiella pneumoniae [K. pneumoniae] as the cause of diseases classified elsewhere; K21.9 Gastro-esophageal reflux disease without esophagitis; M19.90 Unspecified osteoarthritis, unspecified site; H91.90 Unspecified hearing loss, unspecified ear; F03.90 Unspecified dementia, unspecified severity, without behavioral disturbance, psychotic disturbance, mood disturbance, and anxiety; M79.7 Fibromyalgia; I25.10 Atherosclerotic heart disease of native coronary artery without angina pectoris; Z79.891 Long term (current) use of opiate analgesic; Z86.718 Personal history of other venous thrombosis and embolism; I25.2 Old myocardial infarction; Z95.5 Presence of coronary angioplasty implant and graft; Z88.0 Allergy status to penicillin; Z91.041 Radiographic dye allergy status; Z90.710 Acquired absence of both cervix and uterus

== ENCOUNTER → 2018-09-20 | Outpatient (CLI) | payer MEDICARE ==
[~2018-09-20] MED LIST changes: +ADVAIR 250-501 EACH INH; +ARICEPT 5 MG TAB5 MG PO; +ASPIR 8181 MG PO; +CALCITONIN-SAL3.7 ML PO; +CARDIZEM CD 18180 M3 PO; +CARVEDILOL3.125 MG PO; +CEFDINIR300 MG PO; +FENTANYL PATCH75 MCG TRANSDERM; +LASIX 20 MG TAB20 MG PO; +LIDODERM1 EACH TRANSDERM; +LIPITOR 20 MG T20 M1 PO; +LISINOPRIL5 MG PO; +NITROGLYCERIN0.4 MG SUBLING; +NORCO 7.5-3251 EACH PO; +PHENERGAN 25 MG25 M1 PO; +PROAIR RESPICL90 MCG INH; +SYNTHROID75 MCG PO; +[UNRECOGNIZED DRUG - REMARK]
[2018-09-20 09:26] LABS: ABSOLUTE BASOPHILS 0.1 thou/uL (0.0-0.2); ABSOLUTE EOSINOPHILS 0.4 thou/uL (0.0-0.7); ABSOLUTE MONOCYTES 1.4 thou/uL (0.0-1.2); ABSOLUTE NEUTROPHILS 6.6 thou/uL (1.6-8.1); BASOPHILS 1.4 %; EOSINOPHILS 4.2 %; HEMATOCRIT 43.2 % (37.0-47.0); HEMOGLOBIN 14.9 gm/dL (12.0-15.0); LYMPHOCYTES 18.6 %; MCH 32.8 pg (26.0-34.0); MCHC 34.4 g/dL (28.0-37.0); MCV 95.4 fL (80.0-100.0); MONOCYTES 13.6 %; NUCLEATED RBCS 0 /100WBC; PLATELET COUNT* 220 thou/uL (150-400); POLYS 62.2 %; RBC 4.53 mil/uL (4.20-5.00); RDW-CV 13.9 % (10.5-14.5); WBC 10.6 thou/uL (4.0-11.0)
[2018-09-20 09:35] LABS: ALBUMIN 2.8 g/dL (3.4-5.0); ALKALINE PHOSPHATASE 98 U/L (46-116); ANION GAP 9 mmol/L (7-16); BUN 13 mg/dL (7-18); CALCIUM 8.9 mg/dL (8.5-10.1); CHLORIDE 105 mmol/L (98-107); CHOLESTEROL 122 mg/dL (<200); CO2 25 mmol/L (21-32); CREATININE 0.9 mg/dL (0.6-1.3); GLUCOSE 96 mg/dL (70-99); HDL CHOLESTEROL 36 mg/dL (>40); LDL CHOLESTEROL 61 mg/dL (<100); POTASSIUM 3.8 mmol/L (3.5-5.1); SGOT 29 U/L (15-37); SGPT 30 U/L (30-65); SODIUM 139 mmol/L (136-145); TC:HDL 3.4 Ratio (Not establshd); TOTAL BILIRUBIN 0.5 mg/dL (<0.1-1.0); TOTAL PROTEIN 8.3 g/dL (6.4-8.2); TRIGLYCERIDE 125 mg/dL (<150); VLDL 25 mg/dL (<40)
[2018-09-20 09:38] LABS: SERUM ASSESSMENT Clear
== END ==
LOC: M.LAB 08:43
PROVIDERS: Family Medicine
DX: I10 Essential (primary) hypertension (principal); E78.00 Pure hypercholesterolemia, unspecified; E03.9 Hypothyroidism, unspecified

== ENCOUNTER → 2018-10-23 | Outpatient (CLI) | payer MEDICARE ==
--- NOTE | 2018-10-23 14:50 | 2DMMODE ---
[place] [address] 2 D/M-MODE ECHOCARDIOGRAM Name: YANGBRIDGET GEORGE WENDY Room: [facility].#: [id number] Admission: 10/23/18 Attend Phys: Rohith Cruz MD Discharge: Date of : 31 Date of Service: 10/23/18 1450 Report #: [id number] THIS REPORT FOR: //name// APPROVED REPORT Study performed: 10/23/2018 13:16:17 EXAM: Comprehensive 2D, Doppler, and color-flow Echocardiogram Patient Location: Out-Patient BSA: 1.57 HR: 50 bpm BP: 120/85 mmHg Other Information Study Quality: Good Indications Cardiomyopathy 2D Dimensions IVSd: 12.83 (7-11mm) LVOT Diam: 20.72 (18-24mm) LVDd: 29.50 mm PWd: 12.45 (7-11mm) Ascending Ao: 31.49 (22-36mm) LVDs: 26.91 (25-40mm) Aortic Root: 32.14 mm Volumes Left Atrial Volume (Systole) LA ESV Index: 19.10 mL/m2 Aortic Valve AoV Peak Felix.: 0.76 m/s AO Peak Gr.: 2.33 mmHg LVOT Max P.36 mmHg AO Mean Gr.: 1.21 mmHg LVOT Mean P.68 mmHg LVOT Max V: 0.58 m/s AO V2 VTI: 17.11 cm LVOT Mean V: 0.38 m/s TRACEE (VTI): 3.09 cm2 LVOT V1 VTI: 15.69 cm Mitral Valve E/A Ratio: 0.67 MV Decel. Time: 393.67 ms MV E Max Felix.: 0.35 m/s MV PHT: 114.16 ms MVA (PHT): 1.93 [place]2 [place] [address] 2 D/M-MODE ECHOCARDIOGRAM Name: YANG,BRIDGET WENDY Room: [facility]#: [id number] Admission: 10/23/18 Attend Phys: Rohith Curz MD Discharge: Date of : 31 Date of Service: 10/23/18 1450 Report #: [id number] TDI E/Lateral E': 4.38 E/Medial E': 8.75 Medial E' Felix.: 0.04 m/s Lateral E' Felix.: 0.08 m/s Pulmonary Valve PV Peak Felix.: 0.79 m/s PV Peak Gr.: 2.52 mmHg Tricuspid Valve RAP Estimate: 5.00 mmHg TR Peak Gr.: 20.52 mmHg RVSP: 25.52 mmHg PA Pressure: 25.52 mmHg Left Ventricle The left ventricle is normal size. mild hypokinesis noted of the distal septum and apex Mild concentric left ventricular hypertrophy. Left ventricular systolic function is mild decreased. LVEF is 45-50%.. Grade I - abnormal relaxation pattern. Right Ventricle The right ventricle is normal size. The right ventricular systolic function is normal. Atria The left atrium size is normal. The right atrium size is normal. Aortic Valve Mild aortic valve sclerosis. Mild aortic regurgitation. There is no aortic valvular stenosis. Mitral Valve The mitral valve is normal in structure. Mild mitral regurgitation. No evidence of mitral valve stenosis. Tricuspid Valve The tricuspid valve is normal in structure. Mild tricuspid regurgitation. Pulmonic Valve The pulmonary valve is normal in structure. Mild pulmonic regurgitation. Great Vessels The aortic root is normal in size. The inferior vena [place] [address] 2 D/M-MODE ECHOCARDIOGRAM Name: BRIDGET SORIA WENDY Room: [facility]#: [id number] Admission: 10/23/18 Attend Phys: Rohith Cruz MD Discharge: Date of : 31 Date of Service: 10/23/18 1450 Report #: [id number] visualized. Pericardium There is no pericardial effusion. <Conclusion> LVEF is 45-50%.. mild hypokinesis noted of the distal septum and apex Mild aortic valve sclerosis. Mild concentric left ventricular hypertrophy. <ELECTRONICALLY SIGNED> By: Rohith Cruz MD, [facility] 10/23/18 1450 [id number] Rohith Cruz MD, [facility] /INF
== END ==
LOC: M.CRD 12:54
DX: I08.8 Other rheumatic multiple valve diseases (principal); I11.0 Hypertensive heart disease with heart failure; I50.22 Chronic systolic (congestive) heart failure; Z88.0 Allergy status to penicillin; Z91.041 Radiographic dye allergy status

== ENCOUNTER → 2018-10-31 | Outpatient (CLI) | payer MEDICARE | LOC: M.ULTRA 12:53 | DX: N64.4 Mastodynia (principal) ==

== ENCOUNTER → 2019-03-23 | Outpatient (CLI) | payer MEDICARE ==
[2019-03-23 13:49] LABS: ABSOLUTE BASOPHILS 0.1 thou/uL (0.0-0.2); ABSOLUTE EOSINOPHILS 0.7 thou/uL (0.0-0.7); ABSOLUTE LYMPHOCYTES 2.1 thou/uL (0.8-5.3); ABSOLUTE NEUTROPHILS 4.1 thou/uL (1.6-8.1); BASOPHILS 1.1 %; EOSINOPHILS 8.3 %; HEMATOCRIT 42.9 % (37.0-47.0); HEMOGLOBIN 14.9 gm/dL (12.0-15.0); LYMPHOCYTES 26.2 %; MCH 33.9 pg (26.0-34.0); MCHC 34.7 g/dL (28.0-37.0); MCV 97.7 fL (80.0-100.0); MONOCYTES 12.9 %; MPV 9.5 fl. (7.2-11.1); NUCLEATED RBCS 0 /100WBC; PLATELET COUNT* 181 thou/uL (150-400); POLYS 51.5 %; RBC 4.39 mil/uL (4.20-5.00)
[2019-03-23 14:03] LABS: ALBUMIN 3.5 g/dL (3.4-5.0); ALKALINE PHOSPHATASE 88 U/L (46-116); ANION GAP 9 mmol/L (7-16); BUN 13 mg/dL (7-18); CALCIUM 9.7 mg/dL (8.5-10.1); CHLORIDE 104 mmol/L (98-107); CHOLESTEROL 149 mg/dL (<200); CO2 26 mmol/L (21-32); CREATININE 0.9 mg/dL (0.6-1.3); GLUCOSE 104 mg/dL (70-99); HDL CHOLESTEROL 47 mg/dL (>40); LDL CHOLESTEROL 84 mg/dL (<100); POTASSIUM 4.3 mmol/L (3.5-5.1); SGOT 28 U/L (15-37); SGPT 26 U/L (30-65); SODIUM 139 mmol/L (136-145); TC:HDL 3.2 Ratio (Not establshd); TOTAL BILIRUBIN 0.8 mg/dL (<0.1-1.0); TOTAL PROTEIN 8.7 g/dL (6.4-8.2); TRIGLYCERIDE 92 mg/dL (<150); VLDL 18 mg/dL (<40)
[2019-03-23 14:27] LABS: SERUM ASSESSMENT Clear
== END ==
LOC: M.LAB 13:08
PROVIDERS: Family Medicine
DX: I10 Essential (primary) hypertension (principal); I25.10 Atherosclerotic heart disease of native coronary artery without angina pectoris; E78.5 Hyperlipidemia, unspecified; E03.9 Hypothyroidism, unspecified

== ENCOUNTER 2019-10-12 14:36 | Inpatient (IN) | payer MEDICARE ==
[~2019-10-12] VITALS: Ht 165.1 cm; Wt 54.7 kg
[2019-10-12 14:37] VITALS: BP 153/87
[2019-10-12 15:01] LABS: URINE BILIRUBIN NEGATIVE (Negative); URINE BLOOD NEGATIVE (Negative); URINE CLARITY SL CLOUDY; URINE COLOR YELLOW; URINE GLUCOSE-RANDOM NEGATIVE (Negative); URINE KETONES NEGATIVE (Negative); URINE LEUKOCYTES-REFLEX 1+ (Negative); URINE NITRITE-REFLEX NEGATIVE (Negative); URINE PROTEIN NEGATIVE (Negative)
[2019-10-12 15:13] LABS: HEMATOCRIT 43.9 % (37.0-47.0); HEMOGLOBIN 15.4 gm/dL (12.0-15.0); MCV 94.3 fL (80.0-100.0); MPV 9.9 fl. (7.2-11.1); NUCLEATED RBCS 0 /100WBC; PLATELET COUNT* 154 thou/uL (150-400); RBC 4.65 mil/uL (4.20-5.00); RDW-CV 13.2 % (10.5-14.5); WBC 18.9 thou/uL (4.0-11.0)
[2019-10-12 15:15] LABS: BACTERIA-REFLEX >30 Many /HPF (None Seen); CASTS None Seen /LPF (None Seen); CRYSTALS None Seen /LPF (None Seen); SQUAMOUS NONE SEEN /LPF (0-3); URINE RBC 0-2 Rare /HPF (0-2); URINE WBC-REFLEX 6-15 Few /HPF (0-5)
[2019-10-12 15:16] LABS: WBC CLUMPS Few (None Seen)
[2019-10-12 15:25] LABS: ANION GAP 11 mmol/L (7-16); APTT 26.4 Seconds (25.0-31.3); BUN 14 mg/dL (7-18); CALCIUM 8.4 mg/dL (8.5-10.1); CHLORIDE 105 mmol/L (98-107); CO2 22 mmol/L (21-32); CREATININE 0.9 mg/dL (0.6-1.3); GLUCOSE 124 mg/dL (70-99); INR 1.2; PROTIME 12.1 Seconds (9.20-11.50); SODIUM 138 mmol/L (136-145)
[2019-10-12 15:31] LABS: POTASSIUM 2.8 mmol/L (3.5-5.1)
[2019-10-12 15:40] LABS: SGOT 183 U/L (15-37)
[2019-10-12 15:41] LABS: ALBUMIN 2.8 g/dL (3.4-5.0); ALKALINE PHOSPHATASE 87 U/L (46-116); CK-MB MASS < 0.5 ng/mL (<0.5-3.6); NT-PRO BRAIN NAT PEPTIDE 1017 pg/mL (<300); SGPT 87 U/L (30-65); TOTAL PROTEIN 8.1 g/dL (6.4-8.2)
[2019-10-12 15:47] LABS: ABSOLUTE LYMPHOCYTES 1.3 thou/uL (0.8-5.3); ABSOLUTE MONOCYTES 1.1 thou/uL (0.0-1.2); ABSOLUTE NEUTROPHILS 16.4 thou/uL (1.6-8.1); PLATELET ESTIMATE ADEQUATE
--- NOTE | 2019-10-12 15:51 | NUR ---
IN WAITING ROOM AND UPDATED ON PLAN OF CARE. STATES THEY HAVE NOT LEFT THE HOUSE IN APPROX 1 MONTH. PT STARTED C/O LOW ABD PAIN LAST NIGHT AND AMS THIS AM. UNSURE OF MEDS. [facility] AND MED LIST REQUESTED
[2019-10-12] MEDS ORDERED: NORCO 10-325 T1 EACH PO (16:02)
[2019-10-12] MEDS ORDERED: POTASSIUM20 MEQ/15 PO (16:08)
[2019-10-12 17:00] VITALS: BP 134/50
--- NOTE | 2019-10-12 17:00 | NUR ---
INFORMED OF ROOM ASSIGNMENT AND GIVEN PHONE NUMBER TO UNIT
[2019-10-12 18:14] VITALS: BP 134/50
--- NOTE | 2019-10-12 19:05 | NUR ---
PT. ARRIVED TO ROOM 233. PT. UNRESPONSIVE EXCEPT TO PAINFUL STIMULI. CISNEROS PLACED PER ORDERS. FULL ASSESSMENT COMPLETED, ADMISSION PROCESS LIMITED DUE TO PT. STATUS. FALL PRECAUTIONS IN PLACE, CALL LIGHT IN REACH.
[2019-10-12 20:00] VITALS: BP 109/96
[2019-10-13] VITALS: BP 110/47
[2019-10-13 04:00] VITALS: BP 113/43
[2019-10-13 05:55] LABS: CALCIUM 8.2 mg/dL (8.5-10.1); CREATININE 0.8 mg/dL (0.6-1.3); POTASSIUM 3.5 mmol/L (3.5-5.1)
--- NOTE | 2019-10-13 06:52 | NUR ---
PT NOT RESPONDING TO QUESTIONS, NOT OPENING EYES, WILL MAKE VOLENTARY MOVEMENTS. SPOKE WITH WHO STATED SHE IS VERY BIG [place] AND THAT HE HAS TO USE A MAKER BOARD AT HOME SOMETIMES FOR COMMUNICATION. I ATTEMPTED THIS BUT PT WOULD NOT OPEN EYES OR RESPOND. ALSO STATED THAT ALL HER MEDS MUST BE CRUSHED. PT ON ENHANSED PERCAUTIONS, COVID TEST DID COME BACK NOT DETECTED.
[2019-10-13 08:12] LABS: HEMATOCRIT 39.9 % (37.0-47.0); MCH 32.7 pg (26.0-34.0); MCHC 33.7 g/dL (28.0-37.0); MCV 96.9 fL (80.0-100.0); MPV 10.3 fl. (7.2-11.1); RBC 4.11 mil/uL (4.20-5.00); RDW-CV 13.4 % (10.5-14.5); WBC 19.2 thou/uL (4.0-11.0)
[2019-10-13 08:15] LABS: HEMOGLOBIN 13.4 gm/dL (12.0-15.0)
[2019-10-13 08:17] LABS: ALBUMIN 2.3 g/dL (3.4-5.0); TOTAL BILIRUBIN 2.6 mg/dL (<0.1-1.0)
[2019-10-13 08:30] VITALS: BP 137/47
--- NOTE | 2019-10-13 19:14 | NUR ---
ASSUMED PT CARE AT 0730, FULL ASSESMENT DONE CHARTED. PT A/O X3 SOMETIMES X4. SHE IS VERY [place], WEARS A HEARING AID ON THE LEFT SIDE. SHE IS ABLE TO COMMUNICATE IF STAFF TALK LOUD AND SLOW OR USE PAPER AND PEN. SHE C/O CONSTIPATION THIS AM, ENEMA GIVEN, HAD LARGE SOLID BM. PIPIDA SCAN DONE, HAD TO USE MORPHINE FOR IT. SHE TOLERATED REGULAR DINNER. HEPARIN GTT STARTED PER CARDIOLOGY. GI CONSULT PLACED. PT UP WITH 1 ASSIST, USING COMMODE. CISNEROS IN PLACE DD. DARK YELLOW URINE. MEDS TAKEN CRUSED IN APPLESAUCE. PT DENIES PAIN. TAKES HYDROCODONE ROUTINE FOR PAIN, HELD TODAY DUE TO GETTING MORPHINE. CALLED MUTIPLE TIMES, UPDATED, BROUGHT DENTURES. REPORT GIVEN TO IGNACIA ROWELL.
[2019-10-13 20:00] VITALS: BP 139/61
[2019-10-14 00:25] VITALS: BP 121/58
[2019-10-14 04:00] VITALS: BP 157/72
[2019-10-14 04:29] LABS: ABSOLUTE BASOPHILS 0.1 thou/uL (0.0-0.2); ABSOLUTE EOSINOPHILS 0.2 thou/uL (0.0-0.7); ABSOLUTE LYMPHOCYTES 2.1 thou/uL (0.8-5.3); ABSOLUTE MONOCYTES 0.9 thou/uL (0.0-1.2); ABSOLUTE NEUTROPHILS 8.8 thou/uL (1.6-8.1); BASOPHILS 0.4 %; EOSINOPHILS 1.9 %; HEMATOCRIT 37.2 % (37.0-47.0); HEMOGLOBIN 12.7 gm/dL (12.0-15.0); LYMPHOCYTES 17.2 %; MCH 32.8 pg (26.0-34.0); MCHC 34.2 g/dL (28.0-37.0); MONOCYTES 7.2 %; MPV 9.5 fl. (7.2-11.1); NUCLEATED RBCS 0 /100WBC; PLATELET COUNT* 140 thou/uL (150-400); POLYS 73.3 %; RBC 3.87 mil/uL (4.20-5.00); RDW-CV 13.7 % (10.5-14.5)
[2019-10-14 04:38] LABS: POTASSIUM 3.5 mmol/L (3.5-5.1)
[2019-10-14 05:16] LABS: ALBUMIN 2.3 g/dL (3.4-5.0); CALCIUM 7.5 mg/dL (8.5-10.1); CREATININE 0.8 mg/dL (0.6-1.3); PHOSPHORUS* 2.3 mg/dL (2.5-4.9); TOTAL BILIRUBIN 1.2 mg/dL (<0.1-1.0); TOTAL PROTEIN 6.5 g/dL (6.4-8.2)
--- NOTE | 2019-10-14 05:27 | NUR ---
ASSESSMENTS COMPLETED AT BEDSIDE, PLEASE SEE CHARTING FOR DETAILS. MEDICATIONS ADMINISTERED PER MAR. PT REPORTS NO C/O PAIN OR DISCOMFORT. HOURLY ROUNDING COMPLETED FOR SAFETY, CALL LIGHT WITHIN REACH.
[2019-10-14 08:00] VITALS: BP 165/91
[2019-10-14 13:19] VITALS: BP 127/40
--- NOTE | 2019-10-14 16:08 | EKG ---
[place] [address] ELECTROCARDIOGRAM REPORT Name: BRIDGET SORIA Room: [place] [address] ADM IN .R.#: [id number] Admission: 10/12/19 Attend Phys: Farooq Rey Discharge: Date of : 31 Date of Service: 10/12/19 1443 Report #: [id number] THIS REPORT FOR: //name// [facility] ED Test Date: 2019-10-12 Test Time: 14:43:07 Pat Name: BRIDGET SORIA Department: Room: [facility] Gender: F Personnel Consultant: NORIS : 1935 Requested By: Claude Chairez Order Number: [id number] MD: Carlos Mcintyre Measurements Intervals Sutton Rate: 86 P: 258 IL: 184 QRS: -10 QRSD: 85 T: 146 QT: 378 QTc: 452 Interpretive Statements Sinus rhythm with first-degree AV block Nonspecific repol abnormality, diffuse leads Compared to ECG 07/24/2018 02:18:55 Ectopic atrial rhythm now present Early repolarization now present Ventricular premature complex(es) no longer present Electronically Signed On 10-14-2019 16:07:09 CDT by Carlos Mcintyre [email or web address] <ELECTRONICALLY SIGNED> By: Carlos Mcintyre MD, FACC 10/14/19 1607 1443 1443 Carlos Mcintyre MD, [facility] /EPI
[2019-10-14 20:00] VITALS: BP 127/56
[2019-10-15] VITALS: BP 131/53
[2019-10-15 04:00] VITALS: BP 131/53
[2019-10-15 04:51] LABS: CREATININE 0.7 mg/dL (0.6-1.3); POTASSIUM 3.1 mmol/L (3.5-5.1)
--- NOTE | 2019-10-15 07:25 | NUR ---
CHANGE OF SHIFT BEDSIDE REPORT REPORT GIVEN PATIENT SEEN AT BEDSIDE, IN BED ASLEEP ASSUMED PATIENT CARE
--- NOTE | 2019-10-15 07:59 | NUR ---
PT A+O X4. PT HARD OF HEARING. ABLE TO COMMUNICATE BY WRITING ON HER CLIPBOARD. PT WAS (ASYMPTOMATIC) BRADYCARDIC THROUGH THE NIGHT. HELD PAIN MEDICATION AND PT DIDNT REPORT ANY PAIN OR DISCOMFORT THROUGHOUT SHIFT. REPORTED TO ABOVE FINDINGS DAY RN. CALL LIGHT IN REACH. HOURLY ROUNDING FOR SAFETY.
[2019-10-15 12:00] VITALS: BP 150/56
--- NOTE | 2019-10-15 14:26 | 2DMMODE ---
[place] [address] 2 D/M-MODE ECHOCARDIOGRAM Name: BRIDGET SORIA WENDY Room: [place] [address] ADM IN M.R.#: [id number] Admission: 10/12/19 Attend Phys: Farooq Rey Discharge: Date of : 31 Date of Service: 10/15/19 1424 Report #: [id number] THIS REPORT FOR: cc: Anber Chandler,Abner Hirsch,Flash Tang MD [facility] ~ APPROVED REPORT Study performed: 10/15/2019 11:12:55 EXAM: Comprehensive 2D, Doppler, and color-flow Echocardiogram Patient Location: In-Patient Room #: [facility] Status: routine BSA: 1.66 HR: 50 bpm BP: 131/53 mmHg Rhythm: NSR Other Information Study Quality: Good Indications Acute OK 2D Dimensions IVSd: 9.60 (7-11mm) LVOT Diam: 20.31 (18-24mm) LVDd: 42.05 mm PWd: 9.10 (7-11mm) Ascending Ao: 33.24 (22-36mm) LVDs: 27.05 (25-40mm) Aortic Root: 31.97 mm Volumes Left Atrial Volume (Systole) LA ESV Index: 29.70 mL/m2 Aortic Valve AoV Peak Felix.: 1.09 m/s AO Peak Gr.: 4.74 mmHg LVOT Max P.01 mmHg AO Mean Gr.: 2.78 mmHg LVOT Mean P.14 mmHg LVOT Max V: 0.71 m/s AO V2 VTI: 27.10 cm LVOT Mean V: 0.50 m/s TRACEE (VTI): 2.25 cm2 LVOT V1 VTI: 18.86 [place] [address] 2 D/M-MODE ECHOCARDIOGRAM Name: BRIDGET SORIA Room: [address] IN ..#: [id number] Admission: 10/12/19 Attend Phys: Farooq Rey Discharge: Date of : 31 Date of Service: 10/15/19 1424 Report #: [id number] Mitral Valve E/A Ratio: 1.40 MV Decel. Time: 229.99 ms MV E Max Felix.: 0.60 m/s MV PHT: 66.70 ms MVA (PHT): 3.30 cm2 TDI E/Lateral E': 6.00 E/Medial E': 10.00 Medial E' Felix.: 0.06 m/s Lateral E' Felix.: 0.10 m/s Pulmonary Valve PV Peak Felix.: 0.89 m/s PV Peak Gr.: 3.18 mmHg Tricuspid Valve RAP Estimate: 5.00 mmHg TR Peak Gr.: 18.51 mmHg RVSP: 23.00 mmHg PA Pressure: 23.00 mmHg Left Ventricle The left ventricle is normal size. There is normal LV segmental wall motion. There is normal left ventricular wall thickness. Left ventricular systolic function is normal. The left ventricular ejection fraction is within the normal range. LVEF is 50-55%. Right Ventricle The right ventricle is normal size. The right ventricular systolic function is normal. Atria The left atrium size is normal. The right atrium size is normal. Aortic Valve Mild aortic valve sclerosis. Trace aortic regurgitation. There is no aortic valvular stenosis. Mitral Valve The mitral valve is normal in structure. Trace mitral regurgitation. No evidence of mitral valve stenosis. Tricuspid Valve The tricuspid valve is normal in structure. Trace tricuspid regurgitation[place] [address] 2 D/M-MODE ECHOCARDIOGRAM Name: BRIDGET SORIA WENDY Room: [address] IN [facility]#: [id number] Admission: 10/12/19 Attend Phys: Farooq Rey Discharge: Date of : 31 Date of Service: 10/15/19 1424 Report #: [id number] Pulmonic Valve The pulmonary valve is normal in structure. Trace pulmonic regurgitation. Great Vessels The aortic root is normal in size. IVC is not visualized. Pericardium There is no pericardial effusion. <Conclusion> The left ventricle is normal size. There is normal left ventricular wall thickness. Left ventricular systolic function is normal. The left ventricular ejection fraction is within the normal range. LVEF is 50-55%. The right ventricle is normal size. The left atrium size is normal. Mild aortic valve sclerosis. Trace aortic regurgitation. There is no aortic valvular stenosis. The mitral valve is normal in structure. Trace mitral regurgitation. No evidence of mitral valve stenosis. The tricuspid valve is normal in structure. There is no pericardial effusion. There is normal LV segmental wall motion. <ELECTRONICALLY SIGNED> By: Flash Earl MD, FACC 10/15/19 1424 1424 1424 Flash Earl MD, FACC /INF
--- NOTE | 2019-10-15 15:11 | NUR ---
CM attempted to contact Pt's , phone was busy. Cm contacted Pt's dtr, she requested that I speak with , CM provided dtr with CM contact info and requested that give CM a call to discuss living situation.
[2019-10-15 16:00] VITALS: BP 162/60
--- NOTE | 2019-10-15 16:09 | NUR ---
CM spoke with Pt's via phone. Pt is independent with ADLs, completes IADLs. Pt has a walker and cane that she can use for mobility. Hx of [facility]. No hx of SNF. Goal is home at [place], no needs anticipated. Following.
[2019-10-15 20:20] VITALS: BP 152/64
[2019-10-16 00:30] VITALS: BP 131/55
[2019-10-16 04:30] VITALS: BP 150/67
--- NOTE | 2019-10-16 05:04 | NUR ---
ASSUMED CARE AT 1920H, ON RA AND TOLERATED. NO DISTRESS NOTED. UPDATE GIVEN TO AND WANTED TO TALK TO THE DOCTOR TOMORROW MORNING VIA PHONE REGADING THE TREATMENT FOR HER . NO CHEST PAIN NOTED, PT WAS BRADYCARDIC THE WHOLE NIGHT, COREG NOT GIVEN.C CONTINUE MONITORING AND TOWARD GOALS.
[2019-10-16 06:22] LABS: HEMATOCRIT 39.4 % (37.0-47.0); HEMOGLOBIN 13.6 gm/dL (12.0-15.0); MCH 32.9 pg (26.0-34.0); MCHC 34.5 g/dL (28.0-37.0); MCV 95.3 fL (80.0-100.0); MPV 9.5 fl. (7.2-11.1); RBC 4.13 mil/uL (4.20-5.00); RDW-CV 13.3 % (10.5-14.5)
[2019-10-16 06:31] LABS: ALBUMIN 2.3 g/dL (3.4-5.0); CALCIUM 8.2 mg/dL (8.5-10.1); CREATININE 0.7 mg/dL (0.6-1.3); POTASSIUM 3.9 mmol/L (3.5-5.1)
[2019-10-16 08:00] VITALS: BP 176/79
--- NOTE | 2019-10-16 08:28 | CON ---
[address] [address] CONSULTATION Name: BRIDGET SORIA WENDY Room: [place] [address] ADM IN M.R.#: [id number] Admission: 10/12/19 Attend Phys: Joelle Urena Discharge: Date of : 31 Report #: [id number] THIS REPORT FOR: //name// cc: Abner Chandler Bruce R. DO ~ THIS REPORT FOR: //name// CC: Abner Cruz MD [facility] Farooq Rey CARDIOLOGY CONSULT INDICATION: Chest pain, elevated troponin consistent with non-STEMI, and acute cholecystitis. HISTORY OF PRESENT ILLNESS: The patient is an elderly 84-year-old white female with multiple comorbidities. She was admitted to the hospital yesterday with ongoing nausea, vomiting, and chest pain. In this setting, she was found to have elevated bilirubin. Abdominal ultrasound showed evidence of cholelithiasis. She also had an elevation in her troponin consistent with non-ST elevation myocardial infarction. The patient has documented underlying coronary artery disease and an ischemic cardiomyopathy. Her EF on most recent echocardiogram was felt to be in the neighborhood of 40-45%. She has been medically managed for many years. Her last intervention was in the late . At present, she is no longer having chest pain. History is not entirely reliable, although she reports yesterday having chest pain radiating across her chest lasting only a few seconds. She does not recall having abdominal discomfort, nausea, and vomiting. As stated, she appears presently stable. She is not having any further nausea, vomiting or chest pain. PAST MEDICAL HISTORY: 1. Coronary artery disease. 2. Ischemic cardiomyopathy. 3. Hyperlipidemia. 4. Hypertension. 5. Atrial fibrillation. 6. Congestive heart failure. 7. Dementia. 8. Fibromyalgia. 9. [place] [address] CONSULTATION Name: BRIDGET SORIA Room: [address] IN [facility].#: [id number] Admission: 10/12/19 Attend Phys: Joelle Urena Discharge: Date of : 31 Report #: [id number] 10. Loss of hearing. 11. History of deep venous thrombosis with completed course of anticoagulation. 12. Hypothyroidism. PAST SURGICAL HISTORY: 1. Bladder suspension. 2. Hiatal hernia repair. 3. Knee arthroscopy. 4. Ear surgery. 5. Thyroidectomy. 6. Rectocele repair. FAMILY HISTORY: Noncontributory. SOCIAL HISTORY: No alcohol or tobacco use. ALLERGIES: None documented. HOME MEDICATIONS: Albuterol 2 puffs every 4 hours p.r.n., aspirin 81 mg daily, atorvastatin 20 mg daily, Miacalcin 200 units nasally daily, Coreg 3.125 mg b.i.d., Aricept 10 mg daily, Advair 250/50 one puff b.i.d., furosemide 20 mg daily, Bells 10/325 every 6 hours p.r.n., Synthroid 75 mcg daily, Lidoderm patch daily, lisinopril 5 mg one half tablet daily, Nitrostat p.r.n., potassium 20 mEq daily, Phenergan 25 mg every 6 hours p.r.n., Probuphine 15 mg p.r.n., Thera-M, multivitamin 1 tablet daily. REVIEW OF SYSTEMS: A 14-point review of systems according to the patient positive for pneumonia in 2019, COPD, hypothyroidism, DVT remotely, IODINE ALLERGY, PENICILLIN ALLERGY, osteoporosis, hard of hearing. PHYSICAL EXAMINATION: VITAL SIGNS: Blood pressure 137/47, pulse is in the 60s and regular. GENERAL: This is a pleasant elderly female with mild dementia. She is without significant complaint at this time. She is not having chest pain presently. HEENT: Head is normocephalic, atraumatic. Extraocular muscles intact. NECK: Shows no jugular venous distention. There are no carotid bruits. CHEST: Reveals clear lung sounds. CARDIOVASCULAR: Reveals a regular rhythm. I do not appreciate gallop or murmur. ABDOMEN: Reveals normal bowel sounds. The abdomen is soft, nontender. EXTREMITIES: Shows no edema. SKIN: Dry. DIAGNOSTIC DATA: Shows sinus rhythm with first degree AV block and diffuse ST [place] [address] CONSULTATION Name: BRIDGET SORIA Room: [place] [address] ADM IN .R.#: [id number] Admission: 10/12/19 Attend Phys: Joelle Urena Discharge: Date of : 31 Report #: [id number] IMPRESSION AND RECOMMENDATIONS: 1. Non-ST elevation myocardial infarction. The patient presently hemodynamically stable. Continue conservative management. Would consider heparin drip for 24 hours. We will obtain echocardiogram to further assess LV systolic function. Otherwise, continue conservative management and risk factor modification. 2. Possible acute cholecystitis. The patient appears clinically improved. She would be at high risk for intervention either through ERCP or cholecystectomy secondary to recent non-ST elevation myocardial infarction. 3. Hypertension. Blood pressure adequately controlled at present. 4. History of dyslipidemia. Continue atorvastatin. Presently, the patient appears to be stable on medical management. Would be considered high risk for surgical intervention at this time. Recommend continuing with conservative management if possible. <ELECTRONICALLY SIGNED> By: Carlos Mcintyre MD, FACC 10/16/19 0828 1135 [id number] francisco Mcintyre MD, FACC /nt
--- NOTE | 2019-10-16 12:09 | CON ---
[facility] [address] [place] [address] CONSULTATION Name: BRIDGET SORIA WENDY Room: [address] ADM IN M.R.#: [id number] Admission: 10/12/19 Attend Phys: Joelle Urena Discharge: Date of : 31 Report #: [id number] THIS REPORT FOR: //name// cc: Abner Chandler Bruce R. DO ~ THIS REPORT FOR: //name// CC: Abner Rey DATE OF SERVICE: 10/13/2019 CONSULTING PHYSICIAN: Dr. Pedroza. REASON FOR CONSULTATION: Cholecystitis. ASSESSMENT: Possible cholecystitis. RECOMMENDATIONS: 1. Thank you for the consultation. I will follow along. For administrative purposes, please note that this consult was never called in to myself or to my partner who was covering. I noticed the patient on the list at time of my morning rounds at a different hospital. 2. Given the patient's comorbidities, elevated troponin, I do not feel as though she is currently a great surgical candidate. I feel as though surgery would be very high risk for her. 3. Given her cardiac history and generous cardiomegaly on imaging, gallbladder wall thickening can be seen in the setting of right sided heart failure. Therefore, I recommend proceeding with a PIPIDA scan to confirm cholecystitis before placement of percutaneous cholecystostomy drain. 4. Recommend Gastroenterology consultation given the hyperbilirubinemia for possible extrahepatic biliary obstruction such as choledocholithiasis. 5. When the patient on a diet, she will need a strong bowel regimen. We will do enemas in the meantime. She does not appear to have a large fecalith causing a fecal impaction, she appears to have chronic constipation on her CT. 6. The patient certainly could have cholecystitis given her labs and imaging findings; however, she also has evidence of pneumonia on imaging. We would like to confirm cholecystitis with a PIPIDA scan prior to any drainage procedure or perhaps surgery. 7. In the event that the patient would need surgery, she would need cardiac clearance with a possible history of pulmonary artery hypertension and pulmonary fibrosis as well as congestive heart failure. She also has coronary artery disease, status post PTCA. HISTORY OF PRESENT ILLNESS: The patient is an 84-year-[place] [address] CONSULTATION Name: BRIDGET SORIA Room: [address] IN [facility].#: [id number] Admission: 10/12/19 Attend Phys: Joelle Urena Discharge: Date of : 33 Report #: [id number] extensive medical history and is listed to be on Coumadin, who presented to the ER with increased confusion. She has also been noted to be vomiting for a day. The patient has a history of dementia listed, and she is also unable to hear anything that I can say. She does not have her hearing aids, this includes me yelling, very loudly. Therefore, most information was obtained from her chart and the medical staff. A written question was asked regarding the patient having abdominal pain and she denies having any abdominal pain currently. PAST MEDICAL HISTORY: 1. Chronic back pain. 2. Deaf. 3. Chronic obstructive pulmonary disease. 4. Hypothyroidism. 5. History of left lower extremity DVT, on chronic Coumadin. 6. Remote history of [place] and PTCA. 7. Hyperlipidemia. 8. Fibromyalgia. 9. Osteoporosis. 10. GERD. 11. Hiatal hernia. 12. Dysphagia. 13. Arthritis. 14. Dementia. 15. Frequent UTIs. PAST SURGICAL HISTORY: 1. Thyroidectomy. 2. Bladder tack. 3. Arthroplasty of left knee. 4. PTCA. 5. Left ear stapedectomy. 6. Right femoral head screws, no MRI use. SOCIAL HISTORY: Lives with . Denies tobacco or alcohol use. FAMILY HISTORY: Unobtainable. REVIEW OF SYSTEMS: Unobtainable due to inability to communicate with the patient. PHYSICAL EXAMINATION: VITAL SIGNS: Temperature 36.5, pulse 51, respiratory rate 20, blood pressure 113/43. GENERAL: No apparent distress, alert. HEENT: PERRLA, EOMI, MMM, NCAT NECK: Supple. No LAD. Surgical incision noted on the [place] [address] CONSULTATION Name: BRIDGET SORIA WENDY Room: [address] IN [facility].#: [id number] Admission: 10/12/19 Attend Phys: Joelle Urena Discharge: Date of : 33 Report #: [id number] CARDIOVASCULAR: Regular rhythm and rate. Hemodynamically stable. Normal capillary refill. Regular rhythm and rate. Hemodynamically stable. Normal capillary refill. PULMONARY: Nonlabored. Clear to auscultation bilaterally. ABDOMEN: Soft, very mild tenderness to palpation in the right upper quadrant. No guarding, rebound or rigidity, previous incisions noted in the lower abdomen. EXTREMITIES: Calves soft, nontender, no edema. SKIN: No rashes or bruises. PSYCHIATRIC: Normal mood and affect Normal mood and affect NEUROLOGICAL: Grossly intact. CN II-XII grossly intact. MUSCULOSKELETAL: 5/5 strength in upper extremities and lower extremities bilaterally LYMPHATICS: No cervical, inguinal, or supraclavicular lymphadenopathy. LABORATORY DATA: White blood count 19.2, hemoglobin 13.4, platelets 147. Sodium 142, potassium 3.5, creatinine 0.8, bilirubin 2.6, AST 154, ALT 85. Troponin 0.14. BNP 1017. INR 1.2. Coronavirus not detected. IMAGING: Abdominal ultrasound. Impression: Cholelithiasis and gallbladder sludge. Distended gallbladder with mild gallbladder wall thickening. This could reflect low-grade cholecystitis, either acute or chronic. Correlate with symptoms. No biliary ductal dilatation. CT of the abdomen and pelvis. Impression: 1. Generalized cardiomegaly with bilateral lower lobe atelectasis and/or pneumonia. Marked distention of the gallbladder with mild gallbladder wall thickening. No pericholecystic fluid. Enormous gallstones are present in the gallbladder, some may be large at the neck of the gallbladder. Gallbladder ultrasound may be useful for further evaluation. 2. Moderate stool impacted in the distal colon and rectum may represent fecal impaction. No evidence of large or small-bowel obstruction. No areas of colonic or small bowel inflammation. No abscess or abdominal hernia. 3. Surgical changes in the right hip with 3 screws were reduced and old right subcapital fracture. CT of the chest. Impression: 1. Bilateral lower lobe atelectasis and pneumonia was present. No evidence of large pleural effusion. 2. Cardiomegaly with extensive coronary artery calcification. Pulmonary arteries are prominent, which may represent mild pulmonary artery hypertension. CT of the head. Impression: Findings suggest possible CHF and mild interstitial pulmonary edema, versus mild interstitial pneumonitis. Progression of interstitial pulmonary fibrosis since 2016 exam would also be considered for the appearance, [place] [address] CONSULTATION Name: BRIDGET SORIA WENDY Room: [address] IN M.R.#: [id number] Admission: 10/12/19 Attend Phys: Joelle Urena Discharge: Date of : 33 Report #: [id number] Chest x-ray. Impression: Findings suggest possible CHF with mild interstitial pulmonary edema versus mild interstitial pneumonitis. Progression of interstitial pulmonary fibrosis since the 2016 exam could also be a consideration for this appearance. Follow up would be helpful. <ELECTRONICALLY SIGNED> By: Memo Pedroza MD 10/16/19 1209 [id number] Pedroza MD /nt
[2019-10-16 12:28] VITALS: BP 176/79
--- NOTE | 2019-10-16 13:12 | NUR ---
Plan dc to home tomorrow with HH.
[2019-10-16 16:49] VITALS: BP 187/77
[2019-10-16 20:00] VITALS: BP 163/85
[2019-10-17] VITALS (7 sets, daily range): BP systolic 163–198; BP diastolic 61–87
[2019-10-17 04:21] LABS: HEMATOCRIT 41.9 % (37.0-47.0); HEMOGLOBIN 14.6 gm/dL (12.0-15.0); MCH 32.9 pg (26.0-34.0); MCHC 34.8 g/dL (28.0-37.0); MCV 94.7 fL (80.0-100.0); MPV 9.4 fl. (7.2-11.1); RBC 4.42 mil/uL (4.20-5.00); RDW-CV 13.4 % (10.5-14.5); WBC 8.4 thou/uL (4.0-11.0)
[2019-10-17 04:45] LABS: ALBUMIN 2.6 g/dL (3.4-5.0); CALCIUM 8.5 mg/dL (8.5-10.1); CREATININE 0.8 mg/dL (0.6-1.3); MAGNESIUM 1.8 mg/dL (1.8-2.4); POTASSIUM 3.6 mmol/L (3.5-5.1); TOTAL BILIRUBIN 0.8 mg/dL (<0.1-1.0); TOTAL PROTEIN 7.7 g/dL (6.4-8.2)
--- NOTE | 2019-10-17 11:43 | NUR ---
ASSUMED PT CARE AT 0730, PT RESTING IN BED, SATTING 94% ON RA, TRACING SB W/ A 1D ON THE BEAN ROASTER AND HAD NO C/O PAIN OR SHORTNESS OF BREATH. PT GOAL IS MEDICATION MANAGEMENT FOR BP AND TO DC HOME W/ HOME HEALTH TODAY. PT WORKED W/ PT THIS MORNING AND AMBULATED THE RUSSO WELL. AM ASSESSMENT CHARTED, MEDS PER MAR CRUSHED, HOURLY ROUNDING OBSERVED, BED IN LOW POSITION, BED ALARM ON, CALL LIGHT W/IN REACH, WILL CONTINUE POC.
[2019-10-17] MEDS ORDERED: LISINOPRIL5 MG PO (12:56)
[2019-10-17] MEDS ORDERED: FLAGYL500 M1 PO (12:58)
[2019-10-17] MEDS ORDERED: CEFDINIR300 MG PO (13:00)
--- NOTE | 2019-10-17 16:24 | NUR ---
DISCHARGE ORDERS RECEIVED. DISCHARGE INSTRUCTIONS, CARE NOTES, SCRIPTS AND F/U APPTS. GIVEN TO PT. PT COMMUNICATES UNDERSTANDING OF DC TEACHING, BOTH IVS AND STRAND AND BINDER CONTROLLER REMOVED. PT DC'D W/ ALL BELONGINGS AND PAPERWORK VIA WHEELCHAIR W/ NURSING STAFF TO 'S PERSONAL VEHICLE. ALL QUESTIONS AND CONCERNS ADDRESSED WITH .
== END 2019-10-17 16:00 | disposition home health service (06) | DRG 871 ==
LOC: M.ERS 14:36 → M.TBA-ER 16:12 → M.2W 16:12
PROVIDERS: Family Medicine; Internal Medicine; Surgery; ADMIT Internal Medicine
DX: A41.9 Sepsis, unspecified organism (principal); I21.4 Non-ST elevation (NSTEMI) myocardial infarction; G93.41 Metabolic encephalopathy; J18.9 Pneumonia, unspecified organism; N39.0 Urinary tract infection, site not specified; J44.0 Chronic obstructive pulmonary disease with (acute) lower respiratory infection; R65.20 Severe sepsis without septic shock; E89.0 Postprocedural hypothyroidism; Z96.652 Presence of left artificial knee joint; G89.29 Other chronic pain; M54.9 Dorsalgia, unspecified; E78.5 Hyperlipidemia, unspecified; M81.0 Age-related osteoporosis without current pathological fracture; K21.9 Gastro-esophageal reflux disease without esophagitis; M19.90 Unspecified osteoarthritis, unspecified site; K80.80 Other cholelithiasis without obstruction; E86.0 Dehydration; E87.6 Hypokalemia; I25.10 Atherosclerotic heart disease of native coronary artery without angina pectoris; I50.9 Heart failure, unspecified; I48.91 Unspecified atrial fibrillation; E80.6 Other disorders of bilirubin metabolism; I11.0 Hypertensive heart disease with heart failure; I25.5 Ischemic cardiomyopathy; B96.1 Klebsiella pneumoniae [K. pneumoniae] as the cause of diseases classified elsewhere; Z95.5 Presence of coronary angioplasty implant and graft; Z09 Encounter for follow-up examination after completed treatment for conditions other than malignant neoplasm; Z86.718 Personal history of other venous thrombosis and embolism; Z88.0 Allergy status to penicillin; Z91.041 Radiographic dye allergy status; Z20.828 Contact with and (suspected) exposure to other viral communicable diseases

== ENCOUNTER 2019-10-30 15:56 | Inpatient (IN) | payer MEDICARE ==
[~2019-10-30] VITALS: Ht 157.5 cm; Wt 66.5 kg
[~2019-10-30 15:56] MED LIST changes: +FLAGYL500 M1 PO; +NORCO 10-325 T1 EACH PO; +POTASSIUM20 MEQ/15 PO
[2019-10-30 15:57] VITALS: BP 169/89
[2019-10-30 16:42] LABS: URINE BILIRUBIN NEGATIVE (Negative); URINE BLOOD TRACE (Negative); URINE CLARITY CLEAR; URINE COLOR YELLOW; URINE GLUCOSE-RANDOM NEGATIVE (Negative); URINE KETONES TRACE (Negative); URINE LEUKOCYTES-REFLEX 1+ (Negative); URINE NITRITE-REFLEX NEGATIVE (Negative); URINE PROTEIN NEGATIVE (Negative); URINE UROBILINOGEN 0.2 E.U./dl (0.2-1.0)
[2019-10-30 16:47] LABS: ABSOLUTE BASOPHILS 0.1 thou/uL (0.0-0.2); ABSOLUTE EOSINOPHILS 0.1 thou/uL (0.0-0.7); ABSOLUTE LYMPHOCYTES 1.4 thou/uL (0.8-5.3); ABSOLUTE MONOCYTES 1.3 thou/uL (0.0-1.2); BASOPHILS 0.8 %; EOSINOPHILS 0.3 %; HEMATOCRIT 45.8 % (37.0-47.0); HEMOGLOBIN 15.8 gm/dL (12.0-15.0); LYMPHOCYTES 9.2 %; MCH 33.2 pg (26.0-34.0); MCHC 34.4 g/dL (28.0-37.0); MCV 96.5 fL (80.0-100.0); MPV 9.6 fl. (7.2-11.1); NUCLEATED RBCS 0 /100WBC; PLATELET COUNT* 266 thou/uL (150-400); POLYS 80.7 %; RBC 4.75 mil/uL (4.20-5.00); RDW-CV 14.5 % (10.5-14.5); WBC 14.9 thou/uL (4.0-11.0)
[2019-10-30 16:48] LABS: CRYSTALS None Seen /LPF (None Seen); HYALINE CASTS 0-3 Few /LPF (None Seen); SQUAMOUS 0-3 Few /LPF (0-3); URINE RBC 0-2 Rare /HPF (0-2); URINE WBC-REFLEX 6-15 Few /HPF (0-5); YEAST-REFLEX Present (None Seen)
[2019-10-30 16:51] LABS: INR 1.1; PROTIME 11.4 Seconds (9.20-11.50)
[2019-10-30 16:53] LABS: CALCIUM 9.1 mg/dL (8.5-10.1); CREATININE 0.9 mg/dL (0.6-1.3); POTASSIUM 3.6 mmol/L (3.5-5.1)
[2019-10-30 17:04] LABS: ALBUMIN 3.1 g/dL (3.4-5.0); TOTAL BILIRUBIN 0.9 mg/dL (<0.1-1.0); TOTAL PROTEIN 9.1 g/dL (6.4-8.2)
[2019-10-30 18:09] VITALS: BP 172/88
[2019-10-30 18:17] VITALS: BP 168/80
--- NOTE | 2019-10-30 18:29 | NUR ---
PATIENT ARRIVED TO UNIT AT APPROX 1800. ALERT AND ORIENTED TO SELF. ADMISSION HISTORY AND ASSESSMENT REVIEWED. FLUIDS INFUSING UPON TRANSFER. PATIENT ORIENTED TO ROOM AND PLACED ON TELE MONITOR. NO COMPLAINTS AT THIS TIME. CALL LIGHT IS WITHIN REACH. WILL CONTINUE WITH PLAN OF CARE.
[2019-10-30 22:20] VITALS: BP 147/64
[2019-10-31] VITALS (7 sets, daily range): BP systolic 110–142; BP diastolic 43–65
[2019-10-31 04:48] LABS: HEMOGLOBIN 14.2 gm/dL (12.0-15.0); MCH 32.8 pg (26.0-34.0); MCHC 33.7 g/dL (28.0-37.0); MCV 97.1 fL (80.0-100.0); MPV 9.6 fl. (7.2-11.1); RBC 4.32 mil/uL (4.20-5.00); RDW-CV 14.5 % (10.5-14.5); WBC 12.1 thou/uL (4.0-11.0)
[2019-10-31 05:05] LABS: ALBUMIN 2.2 g/dL (3.4-5.0); CALCIUM 7.9 mg/dL (8.5-10.1); CREATININE 0.7 mg/dL (0.6-1.3); MAGNESIUM 1.7 mg/dL (1.8-2.4); TOTAL BILIRUBIN 0.7 mg/dL (<0.1-1.0)
[2019-10-31 05:17] LABS: POTASSIUM 2.8 mmol/L (3.5-5.1)
--- NOTE | 2019-10-31 06:29 | NUR ---
PATIENT HAS SLEPT MOST OF THE NIGHT. VSS ON RA. PATIENT ALERT BUT VERY CONFUSED, BUT DOES HAVE HISTORY OF DEMENTIA WELL. PATIENT IS VERY HARD OF HEARING AND HAS NOT VERBALIZED ANYTHING DURING THE SHIFT. PATIENT TAKES MEDICATIONS CRUSHED WITH APPLESAUCE. IV IN RIGHT FOREARM-NS @ 100ML/HR. IV ABT GIVEN WITHOUT ANY ADVERSE SIDE EFFECTS NOTED. CISNEROS TO DEPENDENT DRAINAGE WITH YELLOW URINE OUTPUT. PATIENT HAS HAD MULTIPLE LOOSE MUCOUSY STOOLS DURING THE SHIFT AND BACILIO CARE PERFORMED. PATIENT PLACED IN SPECIAL CONTACT PRECAUTIONS D/T POSSIBLE C-DIFF AND STOOL SPECIMEN COLLECTED AND SENT TO LAB. FALL PRECAUTIONS IN PLACE AND HOURLY ROUNDS MADE. WILL CONTINUE WITH PLAN OF CARE AND NURSING TO MONITOR.
[2019-10-31 12:43] LABS: CALCIUM 8.3 mg/dL (8.5-10.1); CREATININE 1.5 mg/dL (0.6-1.3); POTASSIUM 3.4 mmol/L (3.5-5.1)
--- NOTE | 2019-10-31 13:54 | NUR ---
ASSUMED CARE OF PATIENT THIS AM AT 0730. PATIENT IS ALERT, CONFUSED TO TIME. SHE HAS BEEN INCONTINENT OF LIQUID BROWNISH STOOL. TELE SHOWS NSR 1DAVB.SHE HAD A LOW GRADE TEMP THIS AM. SHE HAS BEEN SEEN BY OT TODAY. PATIENT HAS DIFFICULTY SWALLOWING PILLS SO THEY WERE CRUSHED AND PLACED IN APPLESAUCE. DIET CHANGED TO PUREED. IV FLUIDS INFUSING PER ORDER. PATIENT REPOSITIONED Q 2 HR. WILL CONTINUE TO MONITOR. NO FALLS OR INJURY. BED ALARM IS ON.
--- NOTE | 2019-10-31 15:38 | NUR ---
CM spoke with Pt's via phone. Pt recently dc to home at the end of September with [facility], wants Pt to return home at tn. does not want skilled. Pt uses a walker or cane for mobility. completes IADLS. Hx of skilled at [facility]. Supportive children that are involved in POC. Per , anticipate dc Tuesday with HH, with a nurse and PT. Following.
--- NOTE | 2019-10-31 16:32 | EKG ---
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 : 1935 Requested By: Claude Chairez Order Number: [id number] MD: Carlos Mcintyre Measurements Intervals [place] Rate: 104 P: 52 VA: 224 QRS: 1 QRSD: 96 T: 206 QT: 305 QTc: 402 Interpretive Statements Sinus tachycardia Prolonged VA interval Low voltage, precordial leads Nonspecific T abnormalities, diffuse leads Compared to ECG 10/12/2019 14:43:07 First degree AV block now present Low QRS voltage now present T-wave abnormality now present Early repolarization no longer present Electronically Signed On 10-31-2019 16:30:24 CDT by Carlos Mcintyre [email or web address] <ELECTRONICALLY SIGNED> By: Carlos Mcintyre MD, [facility] 10/31/19 1630 1613 1613 Carlos Mcintyre MD, [facility] /EPI
[2019-10-31 18:03] LABS: MAGNESIUM 1.9 mg/dL (1.8-2.4); POTASSIUM 3.9 mmol/L (3.5-5.1)
[2019-11-01 04:00] VITALS: BP 139/46
[2019-11-01 04:24] LABS: HEMATOCRIT 35.3 % (37.0-47.0); MCH 33.7 pg (26.0-34.0); MCHC 34.4 g/dL (28.0-37.0); MCV 97.8 fL (80.0-100.0); MPV 9.8 fl. (7.2-11.1); RBC 3.61 mil/uL (4.20-5.00); RDW-CV 14.8 % (10.5-14.5); WBC 9.9 thou/uL (4.0-11.0)
[2019-11-01 04:43] LABS: CALCIUM 8.1 mg/dL (8.5-10.1); CREATININE 0.7 mg/dL (0.6-1.3); POTASSIUM 3.7 mmol/L (3.5-5.1); TOTAL BILIRUBIN 0.4 mg/dL (<0.1-1.0); TOTAL PROTEIN 6.2 g/dL (6.4-8.2)
[2019-11-01 05:02] LABS: HEMOGLOBIN 12.2 gm/dL (12.0-15.0)
--- NOTE | 2019-11-01 06:33 | NUR ---
PATIENT PROGRESSING TOWARDS GOALS: PATIENT IS EXTREMEMLY HARD OF HEARING BUT ABLE TO COMMUNICATE WITH THE USE OF WHITE BOARD AT BEDSIDE. PATIENT DENIES PAIN THIS SHIFT AND DENIES NEED/WANT FOR SCHEDULED NORCO. CISNEROS REMAINS INTACT. ONE EPISODE OF DIARRHEA THIS SHIFT, BACILIO CARE PROVIDED. CALL LIGHT WITHIN REACH
[2019-11-01 08:00] VITALS: BP 149/58
[2019-11-01 12:19] VITALS: BP 149/58
--- NOTE | 2019-11-01 12:26 | NUR ---
Vania spoke with Pt's via phone regarding dispo, informed that Dr is recommending skilled vs rehab. is adament that Pt will not go to skilled but may be open to rehab, requesting to speak with . VANIA asked to call . states that he is working to get a hospital bed to put in the living room so that Pt does not have to do stairs. Pt has cdiff. Following.
--- NOTE | 2019-11-01 16:49 | NUR ---
ASSUMED PT CARE AT 0730, PT RESTING IN BED, SATTING 94% ON RA, TRACING SR W/ A 1D ON THE PERSONNEL ADVISER AND C/O PAIN TO BACK OF NECK, PRN NORCO GIVEN AND LIDOCAINE PATCH APPLIED PER AUG W/ SOME RELIEF. PT HAD A CXR DONE TODAY, SHOWING MILD PNA. PT CONTINUES TO BE IN ISO FOR CURRENT CDIFF AND HAD MULTIPLE WATERY BMS TODAY. PT GOAL IS TO REMAIN FREE FROM PAIN, AND WORK W/ PT/OT. AM ASSESSMENT CHARTED, MEDS PER AUG, HOURLY ROUNDING OBSERVED, WILL CONTINUE POC.
--- NOTE | 2019-11-01 18:31 | NUR ---
NO ACUTE CHANGES THROUGHOUT SHIFT, PT CONTINUES TO SAT MID 90'S ON RA AND TRACE SR W/ A 1D ON THE HAND RIVETER. PT C/O PAIN THIS AFTERNOON, TREATED W/ PRN NORCO W/ PARTIAL RELIEF. PT GOT UP TO CHAIR W/ PT FOR DINNER. PT CONTINUES TO HAVE A CISNEROS IN PLACEC FOR I&O'S AND WAS INCONTINENT OF BM A FEW MORE TIMES THROUGHOUT REST OF SHIFT. MEDS PER AUG, HOURLY ROUNDING OBSERVED, WILL CONTINUE POC.
[2019-11-01 20:10] VITALS: BP 149/53
[2019-11-01 23:42] VITALS: BP 97/66
[2019-11-02 04:00] VITALS: BP 148/55
[2019-11-02 04:46] LABS: HEMOGLOBIN 12.3 gm/dL (12.0-15.0); MCH 33.3 pg (26.0-34.0); MCHC 34.1 g/dL (28.0-37.0); MCV 97.6 fL (80.0-100.0); MPV 9.4 fl. (7.2-11.1); RBC 3.69 mil/uL (4.20-5.00); WBC 7.7 thou/uL (4.0-11.0)
[2019-11-02 05:02] LABS: CALCIUM 8.1 mg/dL (8.5-10.1); CREATININE 0.6 mg/dL (0.6-1.3); MAGNESIUM 1.8 mg/dL (1.8-2.4); POTASSIUM 3.4 mmol/L (3.5-5.1); TOTAL BILIRUBIN 0.4 mg/dL (<0.1-1.0); TOTAL PROTEIN 6.2 g/dL (6.4-8.2)
--- NOTE | 2019-11-02 06:29 | NUR ---
RECEIVED REPORT AND ASSUMED CARE OF PATIENT AT 1900. VSS. ALL ROUNDINGS COMPLETED AND ALL NEEDS MET. PERSONAL ITEMS AND CALL LIGHT IN REACH.
[2019-11-02 08:00] VITALS: BP 132/53
--- NOTE | 2019-11-02 09:12 | NUR ---
Per , anticipate dc to acute rehab on Tuesday. CM updated rehab director. CM to update Pt's .
[2019-11-02 12:00] VITALS: BP 123/59
[2019-11-02 16:11] VITALS: BP 131/53
--- NOTE | 2019-11-02 16:29 | NUR ---
ASSUMED PT CARE AT 0730, PT RESTING IN BED, SATTING 95% ON RA AND TRACING SR W/ A 1D ON THE COMMERCIAL GREEN RETROFIT ARCHITECT. PT HAD NO C/O PAIN THIS MORNING BUT DID C/O PAIN WHILE WORKING W/ PT AROUND 1100, PRN NORCO GIVEN W/ PARTIAL RELIEF. PT IS AWAITING APPROVAL FROM MEDICARE TO TRANSFER TO INPT. REHAB. PT GOAL IS TO INCREASE ACTIVITY AND REMAIN FREE FROM PAIN. PT IS HARD OF HEARING, WE USED A WHITEBOARD TODAY TO COMMUNICATE. AM ASSESSMENT CHARTED, MEDS PER MAR, HOURLY ROUNDING OBSERVED, WILL CONTINUE POC.
--- NOTE | 2019-11-02 18:51 | NUR ---
NO ACUTE CHANGES THROUGHOUT SHIFT, PT CONTINUED TO HAVE SOME NECK PAIN TREATED W/ PRN NORCO. PT'S AND DAUGHTER CALLED AND WERE BOTH UPDATED ON PT POC. PT GOT UP AND AMBULATED THE ROOM W/ PT AND ALSO WORKED W/ OT TODAY. MEDS PER MAR, HOURLY ROUNDING OBSERVED, WILL CONTINUE POC.
[2019-11-02 19:35] VITALS: BP 153/62
[2019-11-02 23:57] VITALS: BP 125/61
[2019-11-03 05:15] LABS: HEMATOCRIT 36.9 % (37.0-47.0); HEMOGLOBIN 12.7 gm/dL (12.0-15.0); MCH 33.4 pg (26.0-34.0); MCHC 34.4 g/dL (28.0-37.0); MCV 97.2 fL (80.0-100.0); MPV 9.3 fl. (7.2-11.1); RBC 3.8 mil/uL (4.20-5.00); RDW-CV 14.9 % (10.5-14.5); WBC 6.3 thou/uL (4.0-11.0)
[2019-11-03 05:30] LABS: CALCIUM 8.1 mg/dL (8.5-10.1); CREATININE 0.6 mg/dL (0.6-1.3); MAGNESIUM 1.7 mg/dL (1.8-2.4); POTASSIUM 3.4 mmol/L (3.5-5.1); TOTAL BILIRUBIN 0.4 mg/dL (<0.1-1.0); TOTAL PROTEIN 6.3 g/dL (6.4-8.2)
--- NOTE | 2019-11-03 05:55 | NUR ---
patient progressing towards goals: patient had no diarrhea this shift. denies pain and discomfort. remains on room air. call light within reach
[2019-11-03 08:00] VITALS: BP 147/68
--- NOTE | 2019-11-03 13:13 | NUR ---
ASSUMED PT CARE AT 0730, PT SATTING 95% ON RA, M/S STATUS AND HAD NO C/O PAIN INITIALLY BUT REQUESTED PAIN MEDS AROUND NOON FOR HER NECK, PRN NORCO GIVEN W/ RELIEF. PT WILL WORK W/ PT/OT TODAY, SHE CONTINUES TO BE INCONTINENT OF BOWEL AND BLADDER, HAD 1 LOOSE STOOL AROUND NOON BUT IT WAS MORE FORMED THAN BEFORE. PT HAS BEEN TURNED Q2H. PT GOAL IS TO INCREASE ACTIVITY AND REMAIN FREE FROM PAIN. PLAN IS TO TRANSFER HER TO INPATIENT REHAB ON 11/05/19. AM ASSESSMENT CHARTED, MEDS PER MAR, HOURLY ROUNDING OBSERVED, WILL CONTINUE POC.
[2019-11-03 16:45] VITALS: BP 155/58
--- NOTE | 2019-11-03 18:41 | NUR ---
NO ACUTE CHANGES THROUGHOUT SHIFT, PHLEBITIS NOTED TO RFA POST ANTIBIOTIC INFUSION, IV DC'D AND NEW IV PLACED IN DEB. PT CONTINUED TO BE INCONTINENT OF BOWEL AND BLADDER TODAY AND HAD FURTHER C/O PAIN TO HER NECK, NORCO GIVEN W/ RELIEF. PT'S CALLED TODAY AND WAS UPDATED ON POC. HOURLY ROUNDING OBSERVED, MEDS PER AUG, PT TURNED Q2H, WILL CONTINUE POC.
[2019-11-03 20:55] VITALS: BP 146/77
[2019-11-04 00:33] VITALS: BP 134/65
--- NOTE | 2019-11-04 05:47 | NUR ---
ASSUMED PT CARE AT 1930. NURSING ASSESSMENT COMPLETED AT START OF SHIFT. PT VOICED NO COMPLAINTS THIS SHIFT. HIGH FALL PRECAUTIONS IN PLACE. Q2H REPOSITIONING COMPLETED. CALL LIGHT WITHIN REACH.
[2019-11-04 07:54] VITALS: BP 169/73
[2019-11-04 10:22] LABS: MAGNESIUM 1.8 mg/dL (1.8-2.4); POTASSIUM 4.1 mmol/L (3.5-5.1)
--- NOTE | 2019-11-04 15:04 | NUR ---
ASSUMED PT CARE AT 0730, PT RESTING IN BED, SATTING 95% ON RA, AND HAD NO C/O PAIN OR SHORTNESS OF BREATH. PT CONTINUED TO BE INCONTINENT OF BOWEL AND BLADDER TODAY AND HAD 1 LOOSE BM THAT WAS MORE FORMED THAN THEY HAVE BEEN. PT GOAL IS TO WORK ON DC PLANNING TO REHAB TOMORROW AND REMAIN FREE FROM PAIN. PT HAS BEEN TURNED Q2H. AM ASSESSMENT CHARTED, MEDS PER MAR, HOURLY ROUNDING OBSERVED, MEDS PER MAR, BED IN LOW POSITION, BED ALARM ON, CALL LIGHT W/IN REACH, WILL CONTINUE POC.
[2019-11-04 17:15] VITALS: BP 157/67
--- NOTE | 2019-11-04 18:32 | NUR ---
NO ACUTE CHANGES THROUGHOUT SHIFT, PT CONTINUED TO BE INCONTINENT OF URINE THROUGHOUT SHIFT. PUREWIC PLACED ON CONTINUOUS SUCTION AND WORKING WELL, CLEAR YELLOW URINE OUT. PT HAD FURTHER C/O PAIN IN HER NECK THIS AFTERNOON, PRN NORCO GIVEN W/ RELIEF. MEDS PER AUG, HOURLY ROUNDING OBSERVED, BED IN LOW POSITION, BED ALARM ON, CALL LIGHT W/IN REACH, WILL CONTINUE POC.
[2019-11-04 20:39] VITALS: BP 147/69
[2019-11-05] VITALS: BP 143/76
--- NOTE | 2019-11-05 04:52 | NUR ---
PATIENT HAD SOME CONFUSION ON HOW THE [employer] WORKED. SHE REPORTED SEVERAL TIMES SHE WAS SOAKED BUT WAS NOT. SHE WAS ABLE TO SLEEP MOST OF THE NIGHT. SHE IS VERY HARD OF HEARING. NO BM THIS SHIFT. URINE OUTPUT CLEAR YELLOW. ALERT AND ORIENTED BUT SOME CONFUSION/FORGETFULNESS. ON ROOM AIR. RECEIVED ALL MEDS SCHEDULED. SHE DID NOT WANT PAIN MEDS AT 0000. WILL CONTINUE TO FOLLOW PLAN OF CARE.
[2019-11-05 08:00] VITALS: BP 149/79
[2019-11-05] MEDS ORDERED: LEVAQUIN 500 M500 M1 PO (12:58)
[2019-11-05] MEDS ORDERED: FLUCONAZOLE 10100 MG PO (12:58)
[2019-11-05] MEDS ORDERED: FIRVANQ50 MG/1 ML PO (12:58)
--- NOTE | 2019-11-05 13:46 | NUR ---
Pt in agreement with going to acute rehab, updated rehabilitation construction specialist. Awaiting dc time. CM to update Pt's . Following.
[2019-11-05 15:06] VITALS: BP 149/79
[2019-11-05 16:00] VITALS: BP 146/85
--- NOTE | 2019-11-05 17:16 | NUR ---
SUMMER RESTING IN BED. UP WITH ASSIST X1. AOX4 BUT FORGETFUL. STILL CURRENTLY HAVING OCCASSIONAL DIARRHEA AND IS RECIEVING ORAL VANCOMYCIN FOR C DIFF. ORDER RECEIVED TO DISCHARGE SUMMER TO REHAB. MED REC, MEDICATION EDCUATION, STROKE EDUCATION AND NEED FOR PARTICIPATION WITH PT/OT/ST AT [facility] RECOMMENDED. REPORT CALLED TO REHAB. PATIENT TRANSPORTED TO REHAB UNIT BY [facility]NER AT 17:30.
== END 2019-11-05 17:48 | DRG 871 ==
LOC: M.ERS 15:56 → M.2W 16:57 → M.TBA-ER 16:57 → M.2W 18:03
PROVIDERS: Family Medicine; ADMIT Internal Medicine
DX: A41.9 Sepsis, unspecified organism (principal); J15.6 Pneumonia due to other Gram-negative bacteria; G92 Toxic encephalopathy; N17.0 Acute kidney failure with tubular necrosis; N39.0 Urinary tract infection, site not specified; I48.20 Chronic atrial fibrillation, unspecified; A04.72 Enterocolitis due to Clostridium difficile, not specified as recurrent; Z96.652 Presence of left artificial knee joint; G89.29 Other chronic pain; M54.9 Dorsalgia, unspecified; E03.9 Hypothyroidism, unspecified; J44.9 Chronic obstructive pulmonary disease, unspecified; M79.7 Fibromyalgia; M81.0 Age-related osteoporosis without current pathological fracture; K21.9 Gastro-esophageal reflux disease without esophagitis; M19.90 Unspecified osteoarthritis, unspecified site; R65.20 Severe sepsis without septic shock; I25.10 Atherosclerotic heart disease of native coronary artery without angina pectoris; B96.89 Other specified bacterial agents as the cause of diseases classified elsewhere; I50.9 Heart failure, unspecified; F03.90 Unspecified dementia, unspecified severity, without behavioral disturbance, psychotic disturbance, mood disturbance, and anxiety; I25.2 Old myocardial infarction; Z95.5 Presence of coronary angioplasty implant and graft; Z79.82 Long term (current) use of aspirin; Z79.899 Other long term (current) drug therapy; Z88.0 Allergy status to penicillin; Z91.048 Other nonmedicinal substance allergy status

== ENCOUNTER 2019-11-05 16:52 | Inpatient (IN) | payer MEDICARE ==
[~2019-11-05] VITALS: Ht 157.5 cm; Wt 56.3 kg
[~2019-11-05 16:52] MED LIST changes: +FIRVANQ50 MG/1 ML PO; +FLUCONAZOLE 10100 MG PO; +LEVAQUIN 500 M500 M1 PO
[2019-11-05 19:05] VITALS: BP 154/82
[2019-11-05 19:15] VITALS: BP 114/83
--- NOTE | 2019-11-06 05:19 | NUR ---
ASSUMED CARES AT 1920. PT ARRIVED ONTO UNIT AT APPROX 1745. ALERT AND ORIENTED. BUT CAN BE FORGETFUL. VERY HARD OF HEARING DESPITE HEARING AID. DOES HAVE WHITE BOARD WITH MARKER FOR COMMUNICATION. MIN ASSIST WITH GAIT BELT AND WALKER. UP TO BSC. DID HAVE SOFT UNFORMED STOOL. ON ISOLATION FOR CDIFF. WANTS PILLS CRUSHED AND GIVEN ON SPOON. C/O SORE THROAT. THROAT LOZENGES ORDERED AND PAIN MED GIVEN. SPOKE WITH AND TOLD TO BRING CLOTHES. ADMISSION ASSESSMENT COMPLETED. SLEPT MOST OF THE NIGHT. CALL LIGHT IN REACH AND BED ALARM ON.
[2019-11-06 06:07] LABS: HEMATOCRIT 40.2 % (37.0-47.0); MCH 33.4 pg (26.0-34.0); MCHC 34.8 g/dL (28.0-37.0); MCV 96.1 fL (80.0-100.0); MPV 8.8 fl. (7.2-11.1); RBC 4.18 mil/uL (4.20-5.00); RDW-CV 14.8 % (10.5-14.5); WBC 8.4 thou/uL (4.0-11.0)
[2019-11-06 06:14] LABS: CALCIUM 8.7 mg/dL (8.5-10.1); CREATININE 0.8 mg/dL (0.6-1.3); POTASSIUM 3.4 mmol/L (3.5-5.1)
[2019-11-06 08:00] VITALS: BP 134/70
--- NOTE | 2019-11-06 16:42 | NUR ---
PT INCONT B/B. BED CHANGED AND BACILIO CARE PRN. SCHEDULED HYROCODONE GIVEN. SPECIAL PRECAUTIONS IN PLACE FOR CDIFF.
[2019-11-06 19:30] VITALS: BP 144/78
--- NOTE | 2019-11-07 07:43 | NUR ---
ASSUMED CARES AT 1920. ALERT AND ORIENTED BUT CAN BED FORGETFUL. USED WHITE BOARD FOR SOME COMMUNICATION SHE IS VERY HARD OF HEARING. WANTS PILLS CRUSHED PLAIN AND THEN GIVEN WITH SPOON. HAD INCONTINENCE. NURSING DID CARES. ON ISOLATION FOR CDIFF. PER PT TAKES SCHEDULED NORCO AND HAS DONE SO AT HOME FOR ARTHRITIC PAIN. REQUESTING TO TALK WITH TRANSITION NURSE AND SO MESSAGE LEFT ON PHONE. SLEPT MOST OF THE NIGHT. CALL LIGHT IN REACH AND BED ALARM ON.
[2019-11-07 08:55] VITALS: BP 129/61
--- NOTE | 2019-11-07 13:32 | NUR ---
Nutrition: Pt admitted to rehab with UTI. PMHx, labs, meds noted. Wt: 133#. Eating 100% of chopped diet. Alb 2, prealb 18.1. Low nutrition risk. Will follow weekly.
--- NOTE | 2019-11-07 16:37 | NUR ---
SW called pt Joseluis to review team conference summary and plan for reteam. SW discussed team's report of progress and functionality with tasks during therapies. Pt in agreement with more time on inpt rehab. Pt hopeful pt able to perform 7 stairs, then rest, and then 6 more stairs. SW asked pt about hospital bed for one level without stairs but pt said that wasn't ideal and would be better if pt could manage steps. Pt wondering about trying to find a wc for community at dc if needed. Pt continues to adamantly refuse SNF and so goal is for home at dc and pt mentioned pt needing to be able to do stairs with rail supervision and SBA from . SW asked about if pt dtr living in the home but pt clarified [place] so pt dtr does not live with pt and pt . Pt does the cooking, laundry and medication assistance. SW to continue to follow to assist with safe dc planning.
--- NOTE | 2019-11-07 18:39 | NUR ---
ASSESSMENT COMPLETED DOCUMENTED THIS MORNING. PATIENT PARTICIPATING IN THERAPY TODAY, SLOW TO PROGRESS AND NEEDS MUCH MOTIVATION AND ENCOURAGEMENT. INCONT OF B&B THROUGHOUT THE SHIFT. COMMUNICATES WELL WITH DRY ERASE BOARD DUE TO HER EXTREME [place].
[2019-11-07 20:19] VITALS: BP 157/55
--- NOTE | 2019-11-08 01:32 | NUR ---
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
[2019-11-08 05:47] LABS: HEMOGLOBIN 13.3 gm/dL (12.0-15.0); MCH 32.9 pg (26.0-34.0); MCV 96.8 fL (80.0-100.0); MPV 9.2 fl. (7.2-11.1); RBC 4.03 mil/uL (4.20-5.00); RDW-CV 14.5 % (10.5-14.5); WBC 9.2 thou/uL (4.0-11.0)
[2019-11-08 05:57] LABS: CALCIUM 8.9 mg/dL (8.5-10.1); CREATININE 0.7 mg/dL (0.6-1.3); POTASSIUM 3.8 mmol/L (3.5-5.1)
--- NOTE | 2019-11-08 06:42 | NUR ---
SLEPT LATE @ 0000-11/07- & SLEEPING GOOD ALL NIGHT.AWAKENED ONLY TO TURN & TO CHECK IF INC URINE.INC URINE X3.BACILIO CARE X3.MOISTURE BARRIER CREAM APPLIED TO RED/PINK AREAS RT & LEFT COCCYX X3.REFUSED HS SNACK.
[2019-11-08 07:50] VITALS: BP 123/51
--- NOTE | 2019-11-08 16:30 | NUR ---
PATIENT UP WITH MAX ASSISTANCE; GAIT BELT AND WALKER UTILIZED WHEN OUT OF BED. NO BM NOTED THIS SHIFT. INCONTINENT OF URINE. PATIENT REFUSED SCHED HYDROCODONE STATED SHE WASNT HAVING ANY PAIN. REMAINS IN CDIFF PRECAUTIONS.
[2019-11-08 20:14] VITALS: BP 144/57
--- NOTE | 2019-11-09 02:35 | NUR ---
ASSUMED CASRE @ 1929-.AWAKE IN BED JUST FINISHED EATING DINNER.HOB UP.ISOLATION OBSERVED.BED ALARM PUT ON @ 1929.HEELS UP ON 2 PILLOWS IN BED. WANTS LIGHT ON SINK ALL NIGHT.SEE PAIN MANAGEMENT FOR C/O FRONTAL HEADACHE @ 2130.MEDS CRUSHED & GIVEN ON A SPOON & PATIENT TAKES IT W/ H20 @ 2134.ON HOURLY ROUNDS.DIRECTOR OF TRAUMA DOING ODD HOUR ROUNDS.
--- NOTE | 2019-11-09 04:57 | NUR ---
SLEEPING @ 0000 & SLEPT GOOD ALL NIGHT.AWAKENED ONLY TO TURN & TO CHECK IF INC.URINE.INC URINE X2.BACILIO CARE DONE X2.MOISTURE BARRIER CREAM APPLIED X2 TO PINK RT & LEFT COCCYX.REFUSED HS SNACK.
[2019-11-09 08:04] VITALS: BP 142/67
--- NOTE | 2019-11-09 19:09 | NUR ---
ASSESSMENT CHARTED. VSS. 1X STOOL. INCONTINENT OF BOWEL AND BLADDER. PAIN RELIEVED WITH SCHEDULED PAIN MEDICATION. NO OTHER EVENTS DURING THIS SHIFT.
[2019-11-09 20:00] VITALS: BP 127/62
--- NOTE | 2019-11-09 21:35 | NUR ---
DON GIVEN UPDATE OF CONDITION, HOW LONG STILL ON ANTIBIOTICS AND THAT SHE COMPLETED THERAPIES PER PHONE.
--- NOTE | 2019-11-09 23:14 | NUR ---
ASSUMED CARE AT 1930. PATIENT RESTING IN BED. INCONTINENT OF URINE, CALL NURSING AFTER SHE HAS VOIDED. SKIN CARE DONE, MOISTURE BARRIER APPLIED. TAKES PILLS CRUSHED, DRY, FOLLOWED WITH WATER. VERY [place]. THIS NURSE USING WHITE BOARD TO ASK PATIENT QUESTIONS. ON C DIFF PRECAUTIONS. COLACE HELD. PULLUPS REMOVED AT HS TO ALLOW AIR TO BOTTOM. SCHEDULE PAIN MEDS PER AUG. HOURLY ROUNDS CONTINUE. BED ALARM ON. CALL LITE IN REACH.
--- NOTE | 2019-11-10 05:52 | NUR ---
SLEPT WELL EXCEPT WHEN WOKE UP INCONTINENT OF URINE. TOTAL SKIN CARE GIVEN. NO C/O PAIN. TURNED Q2H. HOURLY ROUNDS CONTINUE. BED ALARM ON. CALL LITE IN REACH.
[2019-11-10 08:02] VITALS: BP 136/58
--- NOTE | 2019-11-10 16:53 | NUR ---
PT SLOW TO PARTICIPATE IN THERAPY. WANTS TO STAY IN BED. DID GET UP TO THE CHAIR WITH PHYSICAL THERAPY ENCOURAGEMENT. INCONT B/B. SCHEDULED PAIN MEDICATION GIVEN.
[2019-11-10 20:00] VITALS: BP 145/59
--- NOTE | 2019-11-11 05:33 | NUR ---
ASSUMED CARES AT 1920. ALERT AND ORIENTED. PLEASANT. ISOLATION FOR CDIFF. URINARY INCONTINENCE. NO STOOL THIS SHIFT. PILLS CRUSHED. LEGS UP ONTO PILLOW. SLEPT WELL. CALL LIGHT IN REACH AND BED ALARM ON.
[2019-11-11 08:00] VITALS: BP 123/58
--- NOTE | 2019-11-11 18:44 | NUR ---
PATIENT HERE FOR ENCEPHALOPATHY. A&O BUT FORGETFUL. VSS. LSCTA. PATIENT ON RA. PATIENT REQUESTING CREAM OF WHEAT OR OATMEAL ONLY FOR BREAKFAST. ADDED TO DIET. INCONTINENT OF B/B. CHANGED BEDDING AND CLEANED ROOM UP. LIDODERM PATCH APPLIED TO TOP OF NECK THIS AM. PATIENT DID NOT RECEIVE SCHEDULED HYDROCODONE BECAUSE SHE STATED SHE HAS NO PAIN. USED WHITEBOARD TO COMMUNICATE. PATIENT'S DAUGHTER TUAN SPOKE WITH PATIENT THROUGH FACETIME WHICH SEEMED TO LIFT HER SPIRITS. PATIENT ON ISOLATION PRECAUTIONS FOR C-DIFF. PATIENT IN BED, LOWEST LOCKED POSITION. CALL LIGHT IN REACH. PATIENT UP FOR ABOUT 2 HOURS OF THE DAY.
[2019-11-11 20:00] VITALS: BP 127/60
--- NOTE | 2019-11-12 05:44 | NUR ---
ASSUMED CARES AT 1920. ALERT AND ORIENTED. ISOLATION FOR CDIFF. USED WHITE BOARD FOR COMMUNICATION. PAIN MED GIVEN FOR BACK/NECK PAIN. LIKES PILLS CRUSHED AND GIVEN ON SPOON. URINARY INCONTINENCE. BARRIER CREAM TO REDNESS ON COCCYX. PT TURNED ONTO SIDES OVERNIGHT. SPOKE WITH AND UPDATED ON PT STATUS AND QUESTIONS ANSWERED. SLEPT WELL. CALL LIGHT IN REACH AND BED ALARM ON.
[2019-11-12 08:00] VITALS: BP 132/58
--- NOTE | 2019-11-12 18:12 | NUR ---
AM ASSESSMENT AND VITAL SIGNS COMPLETED DOCUMENTED. SCHEDULED PAIN MEDICATIONS GIVEN, LIDOCAINE PATCH APPLIED TO NECK/ SHOULDER AREA. PT HAS BEEN INCONTINENT OF URINE ENTIRE SHIFT. PT TRANSFERS FROM CHAIR TO BED WITH STAND BY ASSIST. PT'S UPDATED ON HER STATUS VIA TELEPHONE. FALL PRECAUTIONS AND HOURLY ROUNDING CONTINUE.
[2019-11-12 20:00] VITALS: BP 116/57
--- NOTE | 2019-11-13 05:18 | NUR ---
ASSUMED CARES AT 1920. ALERT AND ORIENTED. PLEASANT. ISOLATION FOR CDIFF. [place]. C/O PAIN TO BACK/NECK. PAIN MEDS GIVEN. PILLS CRUSHED. URINARY INCONTINENCE. NURSING DOES ALL CARES. SAYS PT LIKES STEWART ENSURE. PT DRANK HALF BOTTLE AT HS. MIN ASSIST WITH GAIT BELT AND WALKER. SLEPT WELL. CALL LIGHT IN REACH AND BED ALARM ON.
[2019-11-13 07:50] VITALS: BP 135/55
--- NOTE | 2019-11-13 17:24 | NUR ---
AM ASSESSMENT AND VITAL SIGNS COMPLETED DOCUMENTED. PT WORKED WITH THERAPIES BUT WAS RESISTENT TO SPENDING TIME OUT OF BED TODAY DESPITE BEING INFORMED OF THE BENEFITS. PT CONTINUES TO BE INCONTINENT OF URINE AND STATES SHE GOES TO THE BATHROOM AT HOME. PT'S ANGLE, UPDATED ON HER PLAN OF CARE AND PROGRESS. FALL PRECAUTIONS AND HOURLY ROUNDING CONTINUE.
[2019-11-13 19:35] VITALS: BP 119/46
--- NOTE | 2019-11-13 19:35 | NUR ---
RESTING QUIETLY AND BED AND WATCHING TV. VERY HARD OF HEARING. MUTED THE TV AND SPOKE LOUDLY AND PATIENT STILL UNABLE TO HEAR. HAD TO WRITE DOWN QUESTIONS TO COMMUNICATE. CALL LIGHT WITHIN REACH.
--- NOTE | 2019-11-13 22:47 | NUR ---
ANGLE PT'S JUST PHONED ASKING ABOUT HOW PATIENT WAS DOING ON STEPS AND GOING TO THE BATHROOM. INFORMED PATIENT THAT ACCORDING TO WHAT WAS CHARTED BY THE THERAPIST THAT THE PATIENT MAXIMUM DISTANCE WALKED WAS 45 FEET AND THAT HER MAXIMUM ON STEPS WAS 3 STEPS. PATIENT ASKED HOW THE PATIENT WENT TO THE BATHROOM. INFORMED ANGLE THAT WAS INFORMED IN REPORT THAT PATIENT WAS INCONTINENT OF URINE.
--- NOTE | 2019-11-14 05:56 | NUR ---
INCONTINENT OF URINE AND A SMALL AMOUNT OF LOOSE STOOL X ONE SO FAR THIS SHIFT. BACILIO CARE GIVEN. ASSISTED WITH REPOSITIONING. HOURLY ROUNDING IN PROGRESS.
[2019-11-14 08:00] VITALS: BP 129/67
--- NOTE | 2019-11-14 17:25 | NUR ---
MOHIT and Dr Gomez met with pt to review team conference summary and communicated through white board writing that plan would be for pt to perform stairs safely and then family training and dc on Sunday 11/19. Pt wanted to dc sooner and was talking about her not wanting her home but that she has teenage dtr at home she needs to take care of. (pt confused). SW called pt and explained plan and reviewed team conference summary and plan for family training and dc afterwards on Tuesday. Pt seemed somewhat agreeable but extremely questioning of pt needs and readyness to dc home and if he'd be able to care for her. MOHIT explained in more detail team's recommendations and scheduled family training for 1 pm on Tuesday. SW to continue to follow to assist with safe dc planning.
--- NOTE | 2019-11-14 18:32 | NUR ---
ASSESSMENT COMPLETED DOCUMENTED THIS MORNING. PATIENT PARTICIPATING WITH THERAPY BUT REQUIRES MUCH ENCOURAGEMENT AND MOTIVATION.....WOULD MUCH RATHER SPEND HER TIME IN BED. HAS BEEN INCONT OF BOWEL AND BLADDER THROUGHOUT THE DAY. WILL HAVE AN INCONTINENT EPISODE AND THEN CALL OUT TO NURSING STAFF TO COME AND "CHANGE" HER. HAS CALLED AND BEEN UPDATED ON PATIENT'S CONDITION FROM CASE MANAGEMENT AND NURSING STAFF.
[2019-11-14 20:00] VITALS: BP 147/60
--- NOTE | 2019-11-15 05:13 | NUR ---
ASSUMED PT CARE AT 1930. PT ALERT AND ORIENTED, POLITE AND COOPERATIVE WITH CARES. EXTREMELY NATIVE. PT ON ISOLATION FOR C DIFF. TAKES PILLS CRUSHED DRY FOLLOWED WITH WATER. PT INCONTINENT OF URINE, NURSING DOES ALL CARES. BARRIER CREAM TO REDNESS ON BUTTOCKS. PT SLEPT WELL OVERNIGHT. USES CALL LIGHT APPROPRIATELY. BED ALARM ON FOR SAFETY. HOURLY ROUNDING IN PROGRESS, WILL CONTINUE TO MONITOR.
[2019-11-15 08:00] VITALS: BP 142/63
[2019-11-15 15:34] LABS: URINE BLOOD 3+ (Negative); URINE CLARITY CLEAR; URINE COLOR YELLOW; URINE GLUCOSE-RANDOM NEGATIVE (Negative); URINE KETONES NEGATIVE (Negative); URINE LEUKOCYTES-REFLEX 1+ (Negative); URINE NITRITE-REFLEX NEGATIVE (Negative); URINE PROTEIN NEGATIVE (Negative); URINE SPECIFIC GRAVITY 1.025 (1.005-1.030); URINE UROBILINOGEN 0.2 E.U./dl (0.2-1.0)
[2019-11-15 15:41] LABS: ICTOTEST (BILI CONFIRMATORY) Negative (Negative); URINE BILIRUBIN 1+ (Negative)
[2019-11-15 15:43] LABS: CASTS None Seen /LPF (None Seen); SQUAMOUS 4-10 Moderate /LPF (0-3); URINE RBC 3-10 Few /HPF (0-2); URINE WBC-REFLEX 6-15 Few /HPF (0-5)
[2019-11-15 15:44] LABS: AMORPHOUS URATES Many /LPF (None Seen); CRYSTALS None Seen /LPF (None Seen)
--- NOTE | 2019-11-15 16:05 | NUR ---
ASSESSMENT COMPLETED DOCUMENTED THIS MORNING. PATIENT HAS BEEN PARTICIPATING IN THERAPY WITH A BIT MORE MOTIVATION TODAY. URINE SPECIMEN OBTAINED AND TAKEN TO LAB. PAIN WELL CONTROLLED WITH CURRENT REGIMEN.
[2019-11-15 20:00] VITALS: BP 151/58
--- NOTE | 2019-11-16 05:43 | NUR ---
ASSUMED PT CARE AT 1930. PT ALERT AND ORIENTED. EXTREMELY [place]. IN ISOLATION FOR C DIFF. TAKES PILLS CRUSHED DRY FOLLOWED WITH WATER. PAIN CONTROLLED WITH CURRENT REGIMEN. INCONTINENT OF BOWEL AND BLADDER. STOOL X1 THIS SHIFT. NURSING DOES ALL CARES. BARRIER CREAM TO BUTTOCKS. SLEPT WELL OVERNIGHT. USES CALL LIGHT APPROPRIATELY. HOURLY ROUNDING IN PROGRESS, WILL CONTINUE TO MONITOR.
--- NOTE | 2019-11-16 15:02 | NUR ---
AM ASSESSMENT AND VITAL SIGNS COMPLETED DOCUMENTED. PT PARTICIPATES BUT ISN'T MOTIVATED. PT IS INCONTINENT OF URINE BUT STATES SHE USES THE BATHROOM AT HOME. ISOLATION PRECAUTIONS MAINTAINED. FALL PRECAUTIONS AND HOURLY ROUNDING CONTINUE.
--- NOTE | 2019-11-16 18:39 | NUR ---
SPOKE WITH PT'S , UPDATED ON STATUS AND PLAN OF CARE.
[2019-11-16 20:05] VITALS: BP 140/57; BP 163/52
--- NOTE | 2019-11-17 05:23 | NUR ---
ASSUMED PT CARE AT 1930. PT ALERT AND ORIENTED, POLITE AND COOPERATIVE WITH CARES. PT IN BED AT SHIFT CHANGE. EXTREMELY [place]. IN ISOLATION FOR C DIFF. TAKES PILLS CRUSHED DRY FOLLOWED WITH WATER. PAIN CONTROLLED WITH CURRENT REGIMEN. INCONTIENENT OF BLADDER. NO STOOL THIS SHIFT. NURSING DOES ALL CARES. BARRIER CREAM TO BUTTOCKS. SLEPT WELL OVERNIGHT. USES CALL LIGHT APPROPRIATELY. BED ALARM ON FOR SAFETY. HOURLY ROUNDING IN PROGRESS, WILL CONTINUE TO MONITOR.
[2019-11-17 08:00] VITALS: BP 155/68
--- NOTE | 2019-11-17 18:03 | NUR ---
ASSESSMENT COMPLETED DOCUMENTED THIS MORNING. PATIENT UP IN RECLINER MOST OF THE DAY, HAS BEEN CONTINENT AND INCONTINENT OF BOWEL AND BLADDER TODAY. PAIN IS WELL CONTROLLED WITH CURRENT PAIN MED REGIMEN. AMBULATING WELL WITH GAIT BELT, WALKER AND ONE CGA/MIN ASSIST. NO ACUTE CHANGES IN CONDITION NOTED.
[2019-11-17 19:45] VITALS: BP 124/58
--- NOTE | 2019-11-17 20:34 | NUR ---
CALLED REQUESTING UPDATE. SPOKE WITH HIM FOR 20 MINUTES REGARDING HOME PLANS, FAMILY TRAINING, AND HOW SHE DID THROUGH THE DAY. HE HAD FURTHER QUESTIONS THAT NEED TO BE DIRECTED TO P.T. AND HE SAYS HE WILL CALL ON TUESDAY TO ADDRESS THESE.
--- NOTE | 2019-11-17 23:32 | NUR ---
ASSUMED CARE AT 1930. PATIENT RESTING IN BED. ASSISTED WITH TURNS. INCONTINENT OF URINE, SKIN CARE DONE, MOISTURE BARRIER APPLIED. BOTTOM PINK BUT SKIN INTACT. TAKES PILLS CRUSHED IN POWDER FORM, THEN SWALLOWS WATER AFTERWARDS. VERY [place]. COMMUNICATED USING WHITE BOARD. ON SCHEDULED PAIN MEDS. HOURLY ROUNDS CONTINUE. BED ALARM ON. CALL LITE IN REACH.
--- NOTE | 2019-11-18 05:53 | NUR ---
SLEPT MOST OF THE NIGHT WITH THE TV ON. NO C/O PAIN. ASSISTED WITH TURNS. HOURLY ROUNDS CONTINUE. BED ALARM ON. CALL LITE IN REACH.
[2019-11-18 07:39] VITALS: BP 138/65
--- NOTE | 2019-11-18 17:52 | NUR ---
ASSUMMED CARE OF PT AT 0730, PT ALERT, SLEEPY, [place], PT TRANSFERS WITH ASSIST OF 1, GB WALKER, PT AMBULATED TO BATHROOM X 2 BUT INCONTINENT SEVERAL TIMES PT ENCOURAGED TO LET NURSING KNOW WHEN SHE NEEDS TO VOID, SOFT STOOL X 1 THIS SHIFT, PT UP IN CHAIR FOR SEVERAL HOURS THIS SHIFT, C/O NECK PAIN, LIDOCAINE PATCH TO NECK AREA, SCHEDULED PAIN MEDS GIVEN, UPDATED THIS AM PER PHONE CALL, HOURLY ROUNDING COMPLETED, ASSESSMENT COMPLETE, WILL CONTINUE TO MONITOR.
[2019-11-18 19:45] VITALS: BP 136/57
--- NOTE | 2019-11-18 22:16 | NUR ---
ASSUMED CARE AT 1930. PATIENT RESTING IN BED. TURNS VERY EASILY. CHUX SATURATED WITH URINE, LINEN AND GOWN CHANGED. SKIN CARE GIVEN. POSITIONED ON SIDE. TAKES PILLS CRUSHED, DRY, THEN FOLLOWS WITH WATER. NO C/O PAIN, ON SCHEDULED MEDS. HOURLY ROUNDS CONTINUE. BED ALARM ON. CALL LITE IN REACH.
--- NOTE | 2019-11-19 05:39 | NUR ---
RESTED IN BED ALL NIGHT. NO APPARENT DISTRESS. TURNS SELF. HOURLY ROUNDS CONTINUE. BED ALARM ON. CALL LITE IN REACH.
--- NOTE | 2019-11-19 06:41 | NUR ---
GAVE MORNING PILLS AT 0635. PATIENT WAS DRY OBSERVED BY THIS NURSE. PATIENT DENIES NEEDING TO VOID.
[2019-11-19 07:45] LABS: HEMATOCRIT 42.3 % (37.0-47.0); HEMOGLOBIN 14.6 gm/dL (12.0-15.0); MCH 33.3 pg (26.0-34.0); MCHC 34.4 g/dL (28.0-37.0); MCV 96.9 fL (80.0-100.0); MPV 9.8 fl. (7.2-11.1); RBC 4.37 mil/uL (4.20-5.00); RDW-CV 14.7 % (10.5-14.5)
[2019-11-19 08:00] VITALS: BP 140/63
[2019-11-19 08:04] LABS: CREATININE 0.8 mg/dL (0.6-1.3); POTASSIUM 3.3 mmol/L (3.5-5.1)
--- NOTE | 2019-11-19 15:00 | NUR ---
ASSUMED PT CARE AT 0700, PT A&O X3 WITH SOME FORGETFULNESS, BILL MOORE'S SLOUGH DISPITE HEARING AIDS. PT IS UP WITH GAIT BELT, WALKER, AND ASSIST X1, REQUIRING ASSISTANCE WITH ALL ADL'S, COOPERATIVE AND ABLE TO MAKE NEEDS KNOWN. INCONTINENT OF BOWEL AND BLADDER REQUIRING FREQUENT TOILETING. REQUESTING INFORMATION ON PTS THERAPY, SPOKE TO PT, HOURLY ROUNDING COMPLETED.
--- NOTE | 2019-11-19 18:27 | NUR ---
AM ASSESSMENT AND VITAL SIGNS COMPLETED DOCUMENTED. PT PARTICIPATES WITH THERAPIES BUT WANTS TO STAY IN BED MOST OF THE DAY. PT'S SPOKE WITH NURSING, OT AND PT TODAY. FALL PRECAUTIONS AND HOURLY ROUNDING CONTINUE.
[2019-11-19 20:00] VITALS: BP 108/61
--- NOTE | 2019-11-20 05:27 | NUR ---
ASSUMED CARES AT 1920. ALERT AND ORIENTED. PLEASANT. [place]. COMMMUNICATED WITH PT VIA WHITE BOARD. C/O NECK AND SHOULDER PAIN. PAIN MEDS GIVEN. TOOK PILLS CRUSHED. INCONTINENT OF URINE. NURSING DID ALL CARES. ON ISOLATION FOR CDIFF. SPOKE WITH AND QUESTIONS ANSWERED. PT SLEPT WELL. CALL LIGHT IN REACH AND BED ALARM ON.
[2019-11-20 09:00] VITALS: BP 132/56
[2019-11-20 15:35] VITALS: BP 132/56
[2019-11-20 15:47] VITALS: BP 132/56
--- NOTE | 2019-11-20 15:50 | NUR ---
Pt to dc home with today. Pt completed family training. MOHIT arranged HH services with pt/family preference of [facility]. MOHIT spoke with Sweta from [facility] who approved RW to be issued and PT issued for pt prior to pt dc; MOHIT faxed order to Sweta and order in pt chart. Pt family provided pt ride home.
--- NOTE | 2019-11-20 17:00 | NUR ---
PATIENT VERY HARD OF HEARING SO DISCHARGE INSTRUCTIONS GIVEN TO . PATIENT'S VERBALIZED UNDERSTANDING OF DISCHARGE INSTRUCTIONS. ON SCHEDULED PAIN MEDICATION. UP WITH STAND BY ASSIST, GAIT BELT AND WALKER TO BATHROOM TODAY. CONTINENT OF BOWEL AND BLADDER TODAY. TOOK PILLS CRUSHED AND FOLLOWED BY WATER. HAS REMAINED ON ISOLATION FOR C-DIFF.
== END 2019-11-20 16:40 | disposition home health service (06) | DRG 91 ==
LOC: M.REH 16:52
PROVIDERS: Internal Medicine; ADMIT Physical Medicine & Rehabilitation
DX: G92 Toxic encephalopathy (principal); A41.9 Sepsis, unspecified organism; J15.6 Pneumonia due to other Gram-negative bacteria; N39.0 Urinary tract infection, site not specified; N17.9 Acute kidney failure, unspecified; A04.72 Enterocolitis due to Clostridium difficile, not specified as recurrent; B96.89 Other specified bacterial agents as the cause of diseases classified elsewhere; G89.29 Other chronic pain; M54.9 Dorsalgia, unspecified; J44.9 Chronic obstructive pulmonary disease, unspecified; I25.10 Atherosclerotic heart disease of native coronary artery without angina pectoris; M81.0 Age-related osteoporosis without current pathological fracture; M79.7 Fibromyalgia; F03.90 Unspecified dementia, unspecified severity, without behavioral disturbance, psychotic disturbance, mood disturbance, and anxiety; R53.81 Other malaise; I48.91 Unspecified atrial fibrillation; I50.9 Heart failure, unspecified; E89.0 Postprocedural hypothyroidism; Z96.652 Presence of left artificial knee joint; E78.5 Hyperlipidemia, unspecified; K21.9 Gastro-esophageal reflux disease without esophagitis; I11.0 Hypertensive heart disease with heart failure; E87.6 Hypokalemia; E86.0 Dehydration; I25.2 Old myocardial infarction; Z90.49 Acquired absence of other specified parts of digestive tract; Z87.440 Personal history of urinary (tract) infections; Z88.0 Allergy status to penicillin; Z91.041 Radiographic dye allergy status

== ENCOUNTER 2020-01-05 18:15 | Inpatient (IN) | payer MEDICARE ==
[~2020-01-05] VITALS: Ht 162.6 cm; Wt 57.5 kg
[~2020-01-05 18:15] MED LIST changes: +CALCITONIN-SAL3.7 ML NASAL; -CALCITONIN-SAL3.7 ML PO
[2020-01-05 18:17] VITALS: BP 115/64
[2020-01-05] MEDS ORDERED: MACROBID 100 M100 MG PO (18:35)
[2020-01-05 19:13] LABS: ABSOLUTE BASOPHILS 0.1 thou/uL (0.0-0.2); ABSOLUTE EOSINOPHILS 0.4 thou/uL (0.0-0.7); ABSOLUTE LYMPHOCYTES 2.5 thou/uL (0.8-5.3); ABSOLUTE MONOCYTES 2.4 thou/uL (0.0-1.2); ABSOLUTE NEUTROPHILS 7.8 thou/uL (1.6-8.1); BASOPHILS 0.7 %; EOSINOPHILS 2.8 %; HEMATOCRIT 46.7 % (37.0-47.0); LYMPHOCYTES 19.3 %; MCH 32.8 pg (26.0-34.0); MCHC 34.2 g/dL (28.0-37.0); MCV 95.8 fL (80.0-100.0); MPV 9.8 fl. (7.2-11.1); NUCLEATED RBCS 0 /100WBC; PLATELET COUNT* 225 thou/uL (150-400); POLYS 59.2 %; RBC 4.87 mil/uL (4.20-5.00); RDW-CV 14.6 % (10.5-14.5); WBC 13.1 thou/uL (4.0-11.0)
[2020-01-05 19:21] LABS: URINE BLOOD 3+ (Negative); URINE CLARITY SL CLOUDY; URINE COLOR DARK YELLOW; URINE GLUCOSE-RANDOM NEGATIVE (Negative); URINE KETONES 1+ (Negative); URINE NITRITE-REFLEX NEGATIVE (Negative); URINE PROTEIN TRACE (Negative); URINE UROBILINOGEN 0.2 E.U./dl (0.2-1.0)
[2020-01-05 19:22] LABS: ICTOTEST (BILI CONFIRMATORY) Positive (Negative); URINE BILIRUBIN 2+ (Negative); URINE LEUKOCYTES-REFLEX 2+ (Negative)
[2020-01-05 19:23] LABS: CALCIUM 8.6 mg/dL (8.5-10.1); CREATININE 0.9 mg/dL (0.6-1.3)
[2020-01-05 19:26] LABS: POTASSIUM 2.5 mmol/L (3.5-5.1)
[2020-01-05 19:27] LABS: ALBUMIN 2.5 g/dL (3.4-5.0); TOTAL BILIRUBIN 0.5 mg/dL (<0.1-1.0); TOTAL PROTEIN 7.6 g/dL (6.4-8.2)
[2020-01-05 19:33] LABS: SQUAMOUS 0-3 Few /LPF (0-3); URINE RBC 3-10 Few /HPF (0-2); URINE WBC-REFLEX >25 Many /HPF (0-5); WBC CLUMPS Many (None Seen)
[2020-01-05 19:34] LABS: CASTS None Seen /LPF (None Seen); CRYSTALS None Seen /LPF (None Seen); MUCUS 0-3 Light strn/LPF (None Seen); YEAST-REFLEX Present (None Seen)
[2020-01-05 23:57] VITALS: BP 115/64
[2020-01-06 00:15] VITALS: BP 139/62
[2020-01-06 05:40] LABS: ABSOLUTE BASOPHILS 0.1 thou/uL (0.0-0.2); ABSOLUTE EOSINOPHILS 0.2 thou/uL (0.0-0.7); ABSOLUTE LYMPHOCYTES 2.4 thou/uL (0.8-5.3); ABSOLUTE MONOCYTES 2.2 thou/uL (0.0-1.2); ABSOLUTE NEUTROPHILS 7.7 thou/uL (1.6-8.1); BASOPHILS 0.6 %; EOSINOPHILS 1.9 %; HEMATOCRIT 43.4 % (37.0-47.0); HEMOGLOBIN 14.7 gm/dL (12.0-15.0); LYMPHOCYTES 18.9 %; MCH 32.5 pg (26.0-34.0); MCHC 33.9 g/dL (28.0-37.0); MCV 95.8 fL (80.0-100.0); MONOCYTES 17.2 %; MPV 9.6 fl. (7.2-11.1); NUCLEATED RBCS 0 /100WBC; PLATELET COUNT* 204 thou/uL (150-400); POLYS 61.4 %; RBC 4.53 mil/uL (4.20-5.00); RDW-CV 14.6 % (10.5-14.5); WBC 12.6 thou/uL (4.0-11.0)
[2020-01-06 05:52] LABS: CREATININE 0.8 mg/dL (0.6-1.3)
[2020-01-06 05:57] LABS: POTASSIUM 3.7 mmol/L (3.5-5.1)
[2020-01-06 08:00] VITALS: BP 126/62
[2020-01-06 12:23] VITALS: BP 125/72
[2020-01-06 20:00] VITALS: BP 148/61
[2020-01-07] VITALS: BP 140/59
[2020-01-07 04:00] VITALS: BP 150/66
[2020-01-07 07:40] LABS: ABSOLUTE BASOPHILS 0.1 thou/uL (0.0-0.2); ABSOLUTE EOSINOPHILS 0.5 thou/uL (0.0-0.7); ABSOLUTE LYMPHOCYTES 2.6 thou/uL (0.8-5.3); ABSOLUTE MONOCYTES 1.6 thou/uL (0.0-1.2); ABSOLUTE NEUTROPHILS 6.4 thou/uL (1.6-8.1); EOSINOPHILS 4.2 %; HEMATOCRIT 44.7 % (37.0-47.0); LYMPHOCYTES 23.3 %; MCH 32.7 pg (26.0-34.0); MCHC 33.6 g/dL (28.0-37.0); MCV 97.2 fL (80.0-100.0); MONOCYTES 14.6 %; MPV 9.8 fl. (7.2-11.1); NUCLEATED RBCS 0 /100WBC; PLATELET COUNT* 176 thou/uL (150-400); POLYS 56.9 %; RDW-CV 15.2 % (10.5-14.5); WBC 11.2 thou/uL (4.0-11.0)
[2020-01-07 08:00] VITALS: BP 130/62
[2020-01-07 08:01] LABS: ALBUMIN 2.2 g/dL (3.4-5.0); CALCIUM 8.3 mg/dL (8.5-10.1); CREATININE 0.7 mg/dL (0.6-1.3); POTASSIUM 3.2 mmol/L (3.5-5.1); TOTAL BILIRUBIN 0.3 mg/dL (<0.1-1.0); TOTAL PROTEIN 7.1 g/dL (6.4-8.2)
--- NOTE | 2020-01-07 11:15 | EKG ---
[place] [address] ELECTROCARDIOGRAM REPORT Name: HALINA SORIAIE WENDY Room: [address] ADM IN .R.#: [id number] Admission: 01/05/20 Attend Phys: Travis Partida, Discharge: Date of : 31 Date of Service: 01/05/20 1843 Report #: [id number] THIS REPORT FOR: //name// [facility] ED Test Date: 2020-01-05 Test Time: 18:43:16 Pat Name: BRIDGET SORIA Department: Room: [facility] Gender: F Ward Clerk: RAUL : 1935 Requested By: Christen Shultz Order Number: [id number] MD: Rohith Cruz Measurements Intervals [place] Rate: 73 P: -65 VT: 223 QRS: -9 QRSD: 89 T: QT: 380 QTc: 419 Interpretive Statements sinus rhythm Atrial premature complexes Prolonged VT interval Low voltage, precordial leads Nonspecific T abnormalities, diffuse leads Compared to ECG 10/30/2019 16:13:30 Ectopic atrial rhythm now present Atrial premature complex(es) now present Sinus tachycardia no longer present T-wave abnormality still present Electronically Signed On 01-07-2020 11:14:58 CDT by Rohith Cruz [email or web address] <ELECTRONICALLY SIGNED> By: Rohith Cruz MD, [facility] 01/07/20 1114 42 1843 Rohith Cruz MD, [facility] /EPI
--- NOTE | 2020-01-07 11:23 | EKG ---
[place] [address] ELECTROCARDIOGRAM REPORT Name: BRIDGET SORIA Room: [address] ADM IN .R.#: [id number] Admission: 01/05/20 Attend Phys: Travis Partida, Discharge: Date of : 31 Date of Service: 01/07/20 0516 Report #: [id number] THIS REPORT FOR: //name// [facility] Test Date: 2020-01-07 Test Time: 05:16:32 Pat Name: BRIDGET SORIA Department: Room: [address] Gender: F Oracle Bpm Consultant: GREER : 1935 Requested By: Farooq Rey Order Number: [id number] MD: Rohith Cruz Measurements Intervals [place] Rate: 123 P: [place]: QRS: 15 QRSD: 89 T: 234 QT: 301 QTc: 431 Interpretive Statements Atrial fibrillation Borderline low voltage, extremity leads Anteroseptal infarct, age indeterminate Repol abnrm suggests ischemia, diffuse leads Electronically Signed On 01-07-2020 11:22:55 CDT by Rohith Cruz [email or web address] <ELECTRONICALLY SIGNED> By: Rohith Cruz MD, [facility] 01/07/20 1122 0516 0516 Rohith Cruz MD, [facility] /EPI
[2020-01-07 12:03] VITALS: BP 138/52
[2020-01-07 16:30] VITALS: BP 146/62
[2020-01-07 19:50] VITALS: BP 159/79
[2020-01-08] VITALS: BP 140/59
[2020-01-08 04:00] VITALS: BP 155/56
[2020-01-08 04:29] LABS: HEMATOCRIT 39.2 % (37.0-47.0); HEMOGLOBIN 13.2 gm/dL (12.0-15.0); MCH 32.3 pg (26.0-34.0); MCHC 33.7 g/dL (28.0-37.0); MCV 95.6 fL (80.0-100.0); MPV 9.4 fl. (7.2-11.1); NUCLEATED RBCS 0 /100WBC; PLATELET COUNT* 193 thou/uL (150-400); RDW-CV 14.6 % (10.5-14.5); WBC 9.5 thou/uL (4.0-11.0)
[2020-01-08 04:35] LABS: ALBUMIN 2.2 g/dL (3.4-5.0); CALCIUM 8.4 mg/dL (8.5-10.1); CREATININE 0.7 mg/dL (0.6-1.3); TOTAL BILIRUBIN 0.3 mg/dL (<0.1-1.0); TOTAL PROTEIN 6.6 g/dL (6.4-8.2)
[2020-01-08 04:52] LABS: POTASSIUM 2.8 mmol/L (3.5-5.1)
[2020-01-08 06:55] LABS: ABSOLUTE BASOPHILS 0.2 thou/uL (0.0-0.2); ABSOLUTE EOSINOPHILS 0.5 thou/uL (0.0-0.7); ABSOLUTE LYMPHOCYTES 2.6 thou/uL (0.8-5.3); ABSOLUTE NEUTROPHILS 5.3 thou/uL (1.6-8.1); ATYPICAL LYMPHS 2 %; METAMYELOCYTES 4 %; PLATELET ESTIMATE ADEQUATE
[2020-01-08 08:00] VITALS: BP 152/61
[2020-01-08 20:00] VITALS: BP 171/64
[2020-01-09] VITALS: BP 145/68
[2020-01-09 03:57] LABS: ABSOLUTE BASOPHILS 0.1 thou/uL (0.0-0.2); ABSOLUTE EOSINOPHILS 0.3 thou/uL (0.0-0.7); ABSOLUTE LYMPHOCYTES 2.3 thou/uL (0.8-5.3); ABSOLUTE NEUTROPHILS 5.4 thou/uL (1.6-8.1); BASOPHILS 0.6 %; EOSINOPHILS 2.9 %; HEMATOCRIT 41.3 % (37.0-47.0); HEMOGLOBIN 14.2 gm/dL (12.0-15.0); LYMPHOCYTES 25.3 %; MCHC 34.4 g/dL (28.0-37.0); MCV 95.9 fL (80.0-100.0); MPV 9.1 fl. (7.2-11.1); NUCLEATED RBCS 0 /100WBC; PLATELET COUNT* 205 thou/uL (150-400); POLYS 60.2 %; RBC 4.31 mil/uL (4.20-5.00); RDW-CV 14.7 % (10.5-14.5)
[2020-01-09 04:00] VITALS: BP 165/67
[2020-01-09 04:16] LABS: ALBUMIN 2.4 g/dL (3.4-5.0); CALCIUM 8.6 mg/dL (8.5-10.1); CREATININE 0.7 mg/dL (0.6-1.3); POTASSIUM 3.6 mmol/L (3.5-5.1); TOTAL BILIRUBIN 0.4 mg/dL (<0.1-1.0)
[2020-01-09 07:30] VITALS: BP 174/62
[2020-01-09] MEDS ORDERED: FIRVANQ50 MG/1 ML PO (11:17)
[2020-01-09 11:31] VITALS: BP 174/62
[2020-01-09 13:00] VITALS: BP 134/79
--- NOTE | 2020-01-10 01:49 | CON ---
[address] [address] CONSULTATION Name: YANGBRIDGET WENDY Room: [address] IN M.R.#: [id number] Admission: 01/05/20 Attend Phys: Travis Partida MD Discharge: 01/09/20 Date of : 31 Report #: [id number] THIS REPORT FOR: //name// cc: STACIE Mccloud family physician/PCP STACIE Mccloud family physician/PCP ~ THIS REPORT FOR: //name// CC: Travis Partida FAM physician/PCP DATE OF SERVICE: 01/07/2020 REASON FOR CONSULT: Rectal bleeding. HISTORY OF PRESENT ILLNESS: This is an 84-year-old female who presents with rectal bleeding and dropping hemoglobin. The patient reports that she has never had a colonoscopy. She currently denies any abdominal pain. She denies any upper GI symptoms as she denies nausea, vomiting, dyspepsia or GERD. PAST MEDICAL HISTORY: Significant for history of renal failure, Clostridium difficile, sepsis, UTI, dyslipidemia, hypothyroidism, hypertension, COPD, fibromyalgia, dysphagia, dementia, arthroplasty of left knee. ALLERGIES: SIGNIFICANT TO PENICILLIN AND IODINE. MEDICATIONS: Please refer to MAR. SOCIAL HISTORY: The patient denies tobacco or alcohol use. FAMILY HISTORY: Noncontributory. PHYSICAL EXAMINATION: VITAL SIGNS: Reveals blood pressure of 138/52, respiration 15, pulse 63, temperature 97.6. LUNGS: Clear. CARDIOVASCULAR: Regular. ABDOMEN: Soft, nontender, nondistended. Bowel sounds are positive. NEUROLOGIC: The patient is alert and oriented x 3. LABORATORY DATA: Reveal sodium of 146, potassium 3.2, BUN is 8, creatinine 0.7, total bilirubin 0.3. Liver function tests are all within normal limit. Albumin is 2.2. WBC is 11.2 with hemoglobin of 15 and platelet of 176. IMAGING: CT of abdomen and pelvis was obtained on admission. This was significant for acute distal colitis extending from splenic flexure to the rectum. There is also suspected gastric lesions [place] [address] CONSULTATION Name: BRIDGET SORIA [facility] [place] Room: [address] IN M.R.#: [id number] Admission: 01/05/20 Attend Phys: Travis Partida MD Discharge: 01/09/20 Date of : 31 Report #: [id number]. ASSESSMENT AND PLAN: We will schedule the patient for upper endoscopy to further evaluate her CT findings. I will make further recommendation based on results. Meanwhile, the patient should be on PPI therapy. <ELECTRONICALLY SIGNED> By: Carole Claudio MD 01/10/20 0149 1304 1350Carole Claudio MD /nt
== END 2020-01-09 16:18 | disposition home health service (06) | DRG 871 ==
LOC: M.ERS 18:15 → M.TBA-ER 20:22 → M.2W 20:22
PROVIDERS: Nurse Practitioner Family; ADMIT Internal Medicine; ATTEND Internal Medicine
PROC: 0D718ZZ Dilation of Upper Esophagus, Via Natural or Artificial Opening Endoscopic (ICD-10-PCS; principal; 2020-01-08)
DX: A41.9 Sepsis, unspecified organism (principal); G93.41 Metabolic encephalopathy; E43 Unspecified severe protein-calorie malnutrition; N30.01 Acute cystitis with hematuria; A04.71 Enterocolitis due to Clostridium difficile, recurrent; G89.29 Other chronic pain; M54.9 Dorsalgia, unspecified; J44.9 Chronic obstructive pulmonary disease, unspecified; E78.5 Hyperlipidemia, unspecified; M81.0 Age-related osteoporosis without current pathological fracture; K21.9 Gastro-esophageal reflux disease without esophagitis; I10 Essential (primary) hypertension; F03.90 Unspecified dementia, unspecified severity, without behavioral disturbance, psychotic disturbance, mood disturbance, and anxiety; M19.90 Unspecified osteoarthritis, unspecified site; K44.9 Diaphragmatic hernia without obstruction or gangrene; I48.91 Unspecified atrial fibrillation; K22.2 Esophageal obstruction; K31.89 Other diseases of stomach and duodenum; E89.0 Postprocedural hypothyroidism; I25.2 Old myocardial infarction; Z96.652 Presence of left artificial knee joint; Z98.61 Coronary angioplasty status; Z79.899 Other long term (current) drug therapy; Z88.0 Allergy status to penicillin; Z91.041 Radiographic dye allergy status; Z87.891 Personal history of nicotine dependence; Z87.440 Personal history of urinary (tract) infections; Z68.21 Body mass index [BMI] 21.0-21.9, adult; Z03.818 Encounter for observation for suspected exposure to other biological agents ruled out

== ENCOUNTER 2020-01-25 13:17 | Inpatient (IN) | payer MEDICARE ==
[~2020-01-25] VITALS: Ht 170.2 cm; Wt 54.0 kg
[~2020-01-25 13:17] MED LIST changes: +MACROBID 100 M100 MG PO
[2020-01-25 13:18] VITALS: BP 171/72
[2020-01-25 13:49] LABS: ABSOLUTE BASOPHILS 0.1 thou/uL (0.0-0.2); ABSOLUTE EOSINOPHILS 0.4 thou/uL (0.0-0.7); ABSOLUTE LYMPHOCYTES 2.7 thou/uL (0.8-5.3); ABSOLUTE MONOCYTES 1.1 thou/uL (0.0-1.2); BASOPHILS 1.4 %; EOSINOPHILS 3.9 %; HEMATOCRIT 41.6 % (37.0-47.0); HEMOGLOBIN 14.3 gm/dL (12.0-15.0); LYMPHOCYTES 28.6 %; MCH 33.2 pg (26.0-34.0); MCHC 34.3 g/dL (28.0-37.0); MCV 96.9 fL (80.0-100.0); MONOCYTES 11.6 %; MPV 9.4 fl. (7.2-11.1); NUCLEATED RBCS 0 /100WBC; PLATELET COUNT* 264 thou/uL (150-400); POLYS 54.5 %; RDW-CV 15.3 % (10.5-14.5); WBC 9.3 thou/uL (4.0-11.0)
[2020-01-25 13:59] LABS: APTT 24.8 Seconds (25.0-31.3); CALCIUM 8.7 mg/dL (8.5-10.1); CREATININE 0.8 mg/dL (0.6-1.3); INR 1.1; PROTIME 11.7 Seconds (9.20-11.50)
[2020-01-25 14:10] LABS: ALBUMIN 2.8 g/dL (3.4-5.0); TOTAL BILIRUBIN 0.4 mg/dL (<0.1-1.0); TOTAL PROTEIN 8.2 g/dL (6.4-8.2)
[2020-01-25 14:43] LABS: URINE CLARITY TURBID
[2020-01-25 14:44] LABS: SQUAMOUS NONE SEEN /LPF (0-3); URINE RBC None Seen /HPF (0-2); URINE WBC-REFLEX >25 Many /HPF (0-5); WBC CLUMPS Many (None Seen)
[2020-01-25 14:45] LABS: BACTERIA-REFLEX >30 Many /HPF (None Seen); CASTS None Seen /LPF (None Seen); CRYSTALS None Seen /LPF (None Seen)
[2020-01-25] MEDS ORDERED: HIPREX1 GM PO (15:38)
--- NOTE | 2020-01-25 15:39 | EKG ---
[place] [address] ELECTROCARDIOGRAM REPORT Name: BRIDGET SORIA Room: [facility]#: [id number] Admission: 01/25/20 Attend Phys: Discharge: Date of : 31 Date of Service: 01/25/20 1325 Report #: [id number] THIS REPORT FOR: //name// [facility] ED Test Date: 2020-01-25 Test Time: 13:25:43 Pat Name: BRIDGET SORIA Department: Room: Gender: F Senior Ui U[employer] Developer: S : 1935 Requested By: Miguel Singer Order Number: [id number] MD: Rohith Cruz Measurements Intervals [place] Rate: 67 P: [place]: QRS: -7 QRSD: 94 T: 52 QT: 432 QTc: 456 Interpretive Statements sinus rhythm Probable septal infarct, old Compared to ECG 01/07/2020 05:16:32 sinus rhythm noted Possible ischemia no longer present Myocardial infarct finding still present Electronically Signed On 01-25-2020 15:39:24 CDT by Rohith Cruz [email or web address] <ELECTRONICALLY SIGNED> By: Rohith Cruz MD, FACC 01/25/20 1539 1325 1325 Rohith Cruz MD, [facility] /EPI
[2020-01-25 20:59] VITALS: BP 170/56
[2020-01-25 21:19] VITALS: BP 139/40
--- NOTE | 2020-01-25 22:59 | NUR ---
ALERT AND ORIENTED X 4 FEMALE PATIENT TO ROOM 116 BY CART FROM ER IN STABLE CONDITION. ADMISSION ROUTINES IN PROGRESS. VITAL SIGNS STABLE. USING WRITTEN COMMUNICATION. UNABLE TO HEAR EVEN WITH USE OF ONE HEARING AID RIGHT EAR. LEFT GLASSES AT HOME. ABLE TO READ LARGE PRINT ON BEDSIDE WHITE BOARD BROUGHT FROM HOME BUT NOT FINE PRINT OF FORMS. WILL HAVE SIGN THESE WHEN HE RETURNS TOMORROW. CONTINUE TO MONITOR.
[2020-01-26 03:46] LABS: HEMATOCRIT 39.6 % (37.0-47.0); HEMOGLOBIN 13.5 gm/dL (12.0-15.0); MCH 32.7 pg (26.0-34.0); MCV 96.4 fL (80.0-100.0); MPV 9.6 fl. (7.2-11.1); RBC 4.11 mil/uL (4.20-5.00); RDW-CV 15.2 % (10.5-14.5); WBC 8.6 thou/uL (4.0-11.0)
[2020-01-26 03:58] LABS: CALCIUM 8.5 mg/dL (8.5-10.1); CREATININE 0.7 mg/dL (0.6-1.3); MAGNESIUM 1.9 mg/dL (1.8-2.4); POTASSIUM 3.7 mmol/L (3.5-5.1)
--- NOTE | 2020-01-26 04:33 | NUR ---
PATIENT HAS REMAINED ALERT AND ORIENTED X 4 THROUGHOUT THE SHIFT AND RESTING QUIETLY ON HOURLY ROUNDS. TURNED Q2H. INCONT X 2 THIS SHIFT. DECLINED BEDPAN WITH TURN, STATING SHE DIDN'T FEEL LIKE. MOISTURE BARRIER TO SACRUM REDNESS WITH INCONT. IVF'S AND ANTIBIOTICS PER ORDER. FALL PRECAUTIONS IN PLACE. CONTINUE TO MONITOR.
[2020-01-26 08:30] VITALS: BP 151/87
--- NOTE | 2020-01-26 18:27 | NUR ---
PATIENT ALERT AND ORIENTED X 3-4. FORGETFUL AT TIMES. VITAL SIGNS STABLE ON ROOM AIR. AFEBRILE. IV PATENT WITH FLUIDS INFUSING. DENIES NAUSEA. PAIN BEING MANAGED WITH PO MEDICATION. TAKES PILLS CRUSHED ON SPOON. ISOLATION MAINTAINED FOR C-DIFF. FALL PRECAUTIONS IN PLACE AND BED ALARM ON. HOURLY ROUNDS MAINTAINED THROUGHOUT THE SHIFT. CALL LIGHT WITHIN REACH. NURSING WILL CONTINUE TO MONITOR.
[2020-01-26 22:00] VITALS: BP 146/59
[2020-01-27 04:28] LABS: CALCIUM 8.9 mg/dL (8.5-10.1); CREATININE 0.5 mg/dL (0.6-1.3); POTASSIUM 3.7 mmol/L (3.5-5.1)
--- NOTE | 2020-01-27 07:29 | NUR ---
PATIENT HAS SLEPT WELL THROUGHOUT MOST OF THE NIGHT. VSS ON RA. PATIENT HAS REMAINED ON BEDREST DURING THE NIGHT. MEDICATIONS GIVEN ORDERED AND CHARTED. PATIENT INCONTINENT OF BOWEL AND BLADDER AND HAD 2 BM'S DURING THE NIGHT. BACILIO CARE PERFORMED. FALL PRECAUTIONS IN PLACE AND HOURLY ROUNDS MADE. WILL CONTINUE WITH PLAN OF CARE AND NURSING TO MONITOR.
[2020-01-27 08:45] VITALS: BP 142/68
[2020-01-27 15:37] VITALS: BP 124/54
--- NOTE | 2020-01-27 17:49 | NUR ---
PATIENT ALERT AND ORIENTED X 4. VITAL SIGNS STABLE ON ROOM AIR. AFEBRILE. IV PATENT AND SALINE LOCKED. ANTIBIOTICS GIVEN PER AUG. PAIN BEING MANAGED WITH PO MEDICATION. DENIES NAUSEA. TURNED AND REPOSITIONED EVERY TWO HOURS. SCD'S IN PLACE BILATERALLY. FEET ELEVATED ON PILLOW. FALL PRECAUTIONS IN PLACE AND BED ALARM ON. HOURLY ROUNDS MAINTAINED THROUGHOUT THE SHIFT. CALL LIGHT WITHIN REACH. NURSING WILL CONTINUE TO MONITOR.
[2020-01-27 21:30] VITALS: BP 138/56
--- NOTE | 2020-01-28 06:50 | NUR ---
PATIENT HAS SLEPT OFF AND ON DURING THE NIGHT. PATIENT AGITATED AT TIMES AND CONFUSED. PATIENT DOES HAVE HISTORY OF DEMENTIA. VSS ON RA. MEDICATIONS GIVEN ORDERED AND CHARTED, ALTHOUGH PATIENT REFUSED IV VANCO THIS AM AND STATED THAT SHE WOULD NOT TAKE IT AND DID NOT UNDERSTAND WHY SHE NEEDED IT. PATIENT STATED THAT WE WERE ALL TRYING TO "KILL" HER AND WE JUST DIDN'T WANT HER TO LEAVE. PATIENT WAS VERY AGITATED AND SAID THAT SHE WANTED TO GO HOME. PATTIENT WAS EDUCATED ON WHY SHE NEEDED THE VANCOMYCIN AND THAT THE DOCTOR ORDERED IT FOR HER TO TAKE. PATIENT STILL REFUSING FOR NURSE TO ATTACH IT TO HER IV AND PULLED HER ARM AWAY. IV IN RIGHT HAND-SL. PATIENT INCONTINENT OF BLADDER DURING THE NIGHT. NO BM DURING THE SHIFT. BACILIO CARE PERFORMED. FALL PRECAUTIONS IN PLACE AND HOURLY ROUNDS MADE. WILL CONTINUE WITH PLAN OF CARE AND NURSING TO MONITOR.
[2020-01-28 07:30] VITALS: BP 167/63
--- NOTE | 2020-01-28 10:18 | NUR ---
cm spk w/pt , thanh, to discuss d/c planning. 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 cm asked thanh does he feels that he is still able to manage pt care d/t age. thanh said, "yes. i'm in good health." thanh stated pt has a walker but has not been using it since her last hospitalization. he bleives the pt will ambulate again once she regains her strength. thanh stated pt is current w/specialized home health for pt and nursing. thanh ok to [facility] w/hh but does not want pt to go to snf. cm spk w/naveen at [facility] to confirm; however, awaitig a callback for clarification as specialized may have "transferred" pt. cm to [facility] to follow.
[2020-01-28 15:51] VITALS: BP 166/74
--- NOTE | 2020-01-28 18:35 | NUR ---
alert and aware. pink, warm and dry. spouse was here sitting with pt for a while this after noon. pt had large soft bm this am. very absentee-[place] and hearing aid battary is . pt using white board to communicate. pt c/o right breast tenderness when she touches it or rolls on it. no lumps noted on palpation. will continue to monitor.
[2020-01-28 20:00] VITALS: BP 176/71
--- NOTE | 2020-01-29 06:29 | NUR ---
PT SLEPT WELL, WAKING ONLY FOR MEDS AT 0000, PAIN CONTROLLED WITH NORCO. PT HAD SMALL SOFT BM THIS AM. VOICED NO COMPLAINTS WCTM
[2020-01-29 07:30] VITALS: BP 151/59
--- NOTE | 2020-01-29 10:22 | NUR ---
REFERRAL FAXED TO [facility] FOR POSSIBLE DISCHARGE TODAY.
--- NOTE | 2020-01-29 13:49 | NUR ---
DISCUSSION WITH PT.S IN ROOM. INFORMED HIM THAT [facility] CANNOT TAKE , DUE TO STAFFING. HE SAID HE DIDN'T REALLY MIND WHO WE REFERRED TO FOR HH, JUST SO THEY COULD HAVE SOMEONE TO ASSIST THEM. CM FAXED REFERRAL TO [facility] [phone]. AWARE DISCHARGE PLANNED FOR TOMORROW.
[2020-01-29 14:00] VITALS: BP 151/59
[2020-01-29 15:40] VITALS: BP 161/69
--- NOTE | 2020-01-29 16:46 | NUR ---
ALERT AND AWARE. P,W,D. IV RIGHT HAND NO S/S OF INFECTION. INCONT. BOWEL AND BLADDER. SAT UP IN CHAIR FOR BREAKFAST. COCCYX AREA RED. INFORMED PT BY WHITE BOARD TO HAVE PILLOW AND TURN Q 2 HOURS. ALSO PUT BARRIER CREAM ON AREA TO HELP PREVENT BREAK DOWN. PLANS TO GO HOME WITH HOME HEALTH TOMORROW. WILL CONTINUE TO MONITOR.
--- NOTE | 2020-01-29 20:34 | NUR ---
PT CALLED TO GET UPDATED ON DISCHARGE. HE STATES THAT PT WILL NEED TO HAVE TRANSPORT VIA EMS AND FIRE DEPT TO GAIN ACCESS TO HOME DUE TO STAIRS. HE PROVIDED PHONE NUMBER OF [phone]. HE STATES THAT PREVIOUS DISCARGE WAS DONE WELL AND HE HAS HIGH HOPES FOR THIS ONE WELL
--- NOTE | 2020-01-30 01:56 | NUR ---
PT HAS HAD RESTFUL PM SHIFT, DENIES PAIN, TAKING MEDS CRUSHED WITH SIPS OF WATER. PT IS INCONTINENT OF BOWEL AND BLADDER, BUT NOTIFIES STAFF OF NEED TO BE CHANGED. PT IS EXTREMELY [place] WITH REPORTED DEAFNESS IN LT EAR AND RT EAR HAS HEARING AID AND PT USES WHITE BOARD FOR WRITTEN COMMUNICATION. REDNESS TO COCCYX DESPITE Q 2 TURNS. WCTM
[2020-01-30 07:50] VITALS: BP 186/75
[2020-01-30] MEDS ORDERED: CIPRO500 MG PO (09:01)
[2020-01-30 11:44] VITALS: BP 151/59
--- NOTE | 2020-01-30 11:46 | NUR ---
VANIA SPK W/KIP AT [facility] TO INFORM HER PT IS D/C'G TODAY. KIP SAID STAFF WILL CONTACT PT "TONIGHT OR TOMORROW" TO SCHEDULE VISIT. VANIA NOTIFIED PT AND SPOUSE, WHO IS AT BEDSIDE. VANIA FAXED ORDERS TO [employer] [phone].
--- NOTE | 2020-01-30 16:11 | NUR ---
PATIENT ALERT AND ORIENTED X4. ASSESSMENT COMPLETED AND CHARTED. VSS ON ROOM AIR. COMPLAINT OF PAIN MANAGED WITH LIDOCAINE PATCH AND ORAL MEDS. NO OTHER COMPLAINTS. PATIENT DISCHARGED HOME WITH HOME HEALTH AND TRANSPORTED VIA AMBULANCE TO HOME. [facility] AT [facility] WITH ALL PERSONAL BELONGINGS AND DISCHARGE INFORMATION.
== END 2020-01-30 14:35 | disposition home health service (06) | DRG 689 ==
LOC: M.ERS 13:17 → M.TBA-ER 16:44 → M.ORTHSURG 16:44
PROVIDERS: Emergency Medicine; ADMIT Internal Medicine; ATTEND Internal Medicine
DX: N39.0 Urinary tract infection, site not specified (principal); G92 Toxic encephalopathy; Z16.24 Resistance to multiple antibiotics; A04.72 Enterocolitis due to Clostridium difficile, not specified as recurrent; E89.0 Postprocedural hypothyroidism; Z96.652 Presence of left artificial knee joint; M54.9 Dorsalgia, unspecified; G89.29 Other chronic pain; J44.9 Chronic obstructive pulmonary disease, unspecified; M79.7 Fibromyalgia; M81.0 Age-related osteoporosis without current pathological fracture; E78.5 Hyperlipidemia, unspecified; F03.90 Unspecified dementia, unspecified severity, without behavioral disturbance, psychotic disturbance, mood disturbance, and anxiety; B96.5 Pseudomonas (aeruginosa) (mallei) (pseudomallei) as the cause of diseases classified elsewhere; K21.9 Gastro-esophageal reflux disease without esophagitis; M19.90 Unspecified osteoarthritis, unspecified site; I25.2 Old myocardial infarction; Z79.82 Long term (current) use of aspirin; Z79.899 Other long term (current) drug therapy; Z88.0 Allergy status to penicillin; Z88.8 Allergy status to other drugs, medicaments and biological substances; Z87.891 Personal history of nicotine dependence; Z03.818 Encounter for observation for suspected exposure to other biological agents ruled out

== ENCOUNTER 2020-03-18 08:49 | Inpatient (IN) | payer MEDICARE ==
[~2020-03-18] VITALS: Ht 157.5 cm; Wt 49.0 kg
[~2020-03-18 08:49] MED LIST changes: +CIPRO500 MG PO; +HIPREX1 GM PO
[2020-03-18 08:53] VITALS: BP 148/85
[2020-03-18 09:27] LABS: HEMATOCRIT 41.4 % (37.0-47.0); HEMOGLOBIN 14.3 gm/dL (12.0-15.0); MCH 33.3 pg (26.0-34.0); MCHC 34.4 g/dL (28.0-37.0); MCV 96.7 fL (80.0-100.0); MPV 8.2 fl. (7.2-11.1); NUCLEATED RBCS 0 /100WBC; PLATELET COUNT* 248 thou/uL (150-400); RBC 4.28 mil/uL (4.20-5.00); RDW-CV 14.8 % (10.5-14.5); WBC 16.3 thou/uL (4.0-11.0)
[2020-03-18 09:35] LABS: CALCIUM 9.4 mg/dL (8.5-10.1); POTASSIUM 3.7 mmol/L (3.5-5.1)
[2020-03-18 09:45] LABS: ALBUMIN 1.9 g/dL (3.4-5.0); APTT 28.1 Seconds (25.0-31.3); INR 1.3; PROTIME 12.9 Seconds (9.20-11.50); TOTAL BILIRUBIN 0.5 mg/dL (<0.1-1.0); TOTAL PROTEIN 7.8 g/dL (6.4-8.2)
[2020-03-18 09:58] LABS: URINE BLOOD 1+ (Negative); URINE CLARITY CLEAR; URINE COLOR YELLOW; URINE GLUCOSE-RANDOM NEGATIVE (Negative); URINE KETONES TRACE (Negative); URINE LEUKOCYTES-REFLEX 1+ (Negative); URINE NITRITE-REFLEX NEGATIVE (Negative); URINE PROTEIN NEGATIVE (Negative); URINE SPECIFIC GRAVITY 1.025 (1.005-1.030); URINE UROBILINOGEN 0.2 E.U./dl (0.2-1.0)
[2020-03-18 09:59] LABS: ICTOTEST (BILI CONFIRMATORY) Negative (Negative); URINE BILIRUBIN 1+ (Negative)
[2020-03-18 10:09] LABS: SQUAMOUS 0-3 Few /LPF (0-3)
[2020-03-18 10:10] LABS: CRYSTALS None Seen /LPF (None Seen); HYALINE CASTS 0-3 Few /LPF (None Seen); URINE RBC None Seen /HPF (0-2); WBC CLUMPS Few (None Seen)
[2020-03-18 10:11] LABS: YEAST-REFLEX Present (None Seen)
[2020-03-18 10:27] LABS: ABSOLUTE LYMPHOCYTES 1.5 thou/uL (0.8-5.3); ABSOLUTE MONOCYTES 1.1 thou/uL (0.0-1.2); ABSOLUTE NEUTROPHILS 13.7 thou/uL (1.6-8.1); PLATELET ESTIMATE ADEQUATE
[2020-03-18 11:18] VITALS: BP 141/85
[2020-03-18 11:45] VITALS: BP 139/82
[2020-03-18 16:00] VITALS: BP 97/49
[2020-03-18 19:51] VITALS: BP 111/62
[2020-03-19 04:44] LABS: HEMATOCRIT 37.6 % (37.0-47.0); MCHC 34.7 g/dL (28.0-37.0); MCV 95.2 fL (80.0-100.0); MPV 8.9 fl. (7.2-11.1); RBC 3.95 mil/uL (4.20-5.00); RDW-CV 14.8 % (10.5-14.5); WBC 16.4 thou/uL (4.0-11.0)
[2020-03-19 05:35] LABS: CALCIUM 8.7 mg/dL (8.5-10.1); CREATININE 0.7 mg/dL (0.6-1.3); MAGNESIUM 1.7 mg/dL (1.8-2.4); POTASSIUM 3.8 mmol/L (3.5-5.1)
[2020-03-19 18:14] VITALS: BP 107/52
[2020-03-19 19:50] VITALS: BP 170/56
[2020-03-20 04:06] LABS: CREATININE 0.7 mg/dL (0.6-1.3); MAGNESIUM 1.8 mg/dL (1.8-2.4); POTASSIUM 3.6 mmol/L (3.5-5.1)
[2020-03-20 08:13] VITALS: BP 132/64
[2020-03-20 15:32] VITALS: BP 134/72
[2020-03-20 20:45] VITALS: BP 125/66
[2020-03-21 03:59] LABS: HEMATOCRIT 40.4 % (37.0-47.0); HEMOGLOBIN 13.6 gm/dL (12.0-15.0); MCH 32.5 pg (26.0-34.0); MCHC 33.7 g/dL (28.0-37.0); MCV 96.2 fL (80.0-100.0); MPV 8.6 fl. (7.2-11.1); RBC 4.2 mil/uL (4.20-5.00); RDW-CV 15.2 % (10.5-14.5); WBC 14.7 thou/uL (4.0-11.0)
[2020-03-21 04:51] LABS: CREATININE 0.6 mg/dL (0.6-1.3); MAGNESIUM 1.8 mg/dL (1.8-2.4); POTASSIUM 3.5 mmol/L (3.5-5.1)
[2020-03-21 07:37] VITALS: BP 129/78
[2020-03-21 16:00] VITALS: BP 105/49
[2020-03-22 04:38] LABS: HEMATOCRIT 39.1 % (37.0-47.0); HEMOGLOBIN 13.2 gm/dL (12.0-15.0); MCH 32.8 pg (26.0-34.0); MCHC 33.8 g/dL (28.0-37.0); MCV 96.8 fL (80.0-100.0); MPV 8.9 fl. (7.2-11.1); NUCLEATED RBCS 0 /100WBC; PLATELET COUNT* 263 thou/uL (150-400); RBC 4.03 mil/uL (4.20-5.00); RDW-CV 15.5 % (10.5-14.5); WBC 13.9 thou/uL (4.0-11.0)
[2020-03-22 05:06] LABS: ALBUMIN 1.5 g/dL (3.4-5.0); CALCIUM 8.7 mg/dL (8.5-10.1); CREATININE 0.8 mg/dL (0.6-1.3); PHOSPHORUS* 1.3 mg/dL (2.5-4.9); POTASSIUM 3.5 mmol/L (3.5-5.1); TOTAL BILIRUBIN 0.4 mg/dL (<0.1-1.0); TOTAL PROTEIN 6.7 g/dL (6.4-8.2)
[2020-03-22 06:21] LABS: ABSOLUTE EOSINOPHILS 0.1 thou/uL (0.0-0.7); ABSOLUTE LYMPHOCYTES 1.4 thou/uL (0.8-5.3); ABSOLUTE MONOCYTES 1.4 thou/uL (0.0-1.2); MYELOCYTES 1 %
[2020-03-22 06:22] LABS: PLATELET ESTIMATE ADEQUATE
[2020-03-22 06:23] LABS: ANISOCYTOSIS 1+; POIKILOCYTOSIS 1+
[2020-03-22 07:45] VITALS: BP 124/55
[2020-03-22 19:17] VITALS: BP 149/96
[2020-03-23 07:55] VITALS: BP 114/65
[2020-03-23 20:00] VITALS: BP 130/72
[2020-03-24 05:30] LABS: CALCIUM 8.6 mg/dL (8.5-10.1); CREATININE 0.6 mg/dL (0.6-1.3); MAGNESIUM 1.9 mg/dL (1.8-2.4); PHOSPHORUS* 1.8 mg/dL (2.5-4.9); POTASSIUM 3.6 mmol/L (3.5-5.1)
[2020-03-24 06:21] LABS: HEMATOCRIT 42.3 % (37.0-47.0); HEMOGLOBIN 14.3 gm/dL (12.0-15.0); MCH 32.7 pg (26.0-34.0); MCHC 33.9 g/dL (28.0-37.0); MCV 96.4 fL (80.0-100.0); MPV 8.2 fl. (7.2-11.1); RBC 4.39 mil/uL (4.20-5.00); WBC 13.9 thou/uL (4.0-11.0)
[2020-03-24 07:35] VITALS: BP 116/67
[2020-03-24 16:00] VITALS: BP 108/68
[2020-03-24 19:57] VITALS: BP 117/70
[2020-03-25 08:00] VITALS: BP 102/45
[2020-03-25] MEDS ORDERED: ACIDOPHILUS LA1 EAC1 PO (08:12)
[2020-03-25] MEDS ORDERED: ERTAPENEM1 GM IV (08:12)
[2020-03-25] MEDS ORDERED: VANCOCIN 125 M125 M1 PO ×2 (08:12→10:12)
[2020-03-25] MEDS ORDERED: FLAGYL500 M1 PO (08:12)
[2020-03-25] MEDS ORDERED: MSL20MG/ML PO (10:17)
[2020-03-25 15:59] VITALS: BP 100/62
[2020-03-25 21:45] VITALS: BP 119/67
[2020-03-26 07:50] VITALS: BP 103/65
[2020-03-26] MEDS ORDERED: LINEZOLID600 MG PO (11:57)
[2020-03-26 16:00] VITALS: BP 114/66
[2020-03-26 20:00] VITALS: BP 108/64
[2020-03-27 07:50] VITALS: BP 103/64
[2020-03-27 16:36] VITALS: BP 103/64
[2020-03-27 16:40] VITALS: BP 103/64
[2020-03-27 17:53] VITALS: BP 103/64
== END 2020-03-27 17:10 | disposition hospice, home (50) | DRG 853 ==
LOC: M.ERS 08:49 → M.3W 09:17 → M.TBA-ER 09:17 → M.3W 11:33
PROVIDERS: Emergency Medicine Emergency Medical Services; Surgery; ADMIT Internal Medicine; ATTEND Internal Medicine
PROC: 0QB10ZZ Excision of Sacrum, Open Approach (ICD-10-PCS; 2020-03-20)
PROC: 05HC33Z Insertion of Infusion Device into Left Basilic Vein, Percutaneous Approach (ICD-10-PCS; principal; 2020-03-24)
DX: A40.9 Streptococcal sepsis, unspecified (principal); L89.154 Pressure ulcer of sacral region, stage 4; E43 Unspecified severe protein-calorie malnutrition; R53.2 Functional quadriplegia; N39.0 Urinary tract infection, site not specified; M46.28 Osteomyelitis of vertebra, sacral and sacrococcygeal region; E89.0 Postprocedural hypothyroidism; Z96.652 Presence of left artificial knee joint; G89.29 Other chronic pain; M54.9 Dorsalgia, unspecified; J44.9 Chronic obstructive pulmonary disease, unspecified; K21.9 Gastro-esophageal reflux disease without esophagitis; E78.5 Hyperlipidemia, unspecified; F03.90 Unspecified dementia, unspecified severity, without behavioral disturbance, psychotic disturbance, mood disturbance, and anxiety; M81.0 Age-related osteoporosis without current pathological fracture; Z66 Do not resuscitate; R13.10 Dysphagia, unspecified; Z20.828 Contact with and (suspected) exposure to other viral communicable diseases; Z88.0 Allergy status to penicillin; Z91.041 Radiographic dye allergy status; Z87.891 Personal history of nicotine dependence; Z79.82 Long term (current) use of aspirin; Z79.899 Other long term (current) drug therapy; Z23 Encounter for immunization